=== PATIENT | female | born 1930 | race Caucasian/White ===

== ENCOUNTER 2017-11-19 22:57 | Inpatient (IN) | payer MEDICARE ==
[~2017-11-19] VITALS: Ht 170.2 cm; Wt 55.6 kg
[2017-11-19] MEDS ORDERED: QUET25TA5 PO (23:53)
[2017-11-19] MEDS ORDERED: MULT1TAB52 PO (23:53)
[2017-11-19] MEDS ORDERED: CARB1CAP7 PO (23:53)
[2017-11-19] MEDS ORDERED: MIDO5TAB PO (23:53)
[2017-11-19] MEDS ORDERED: CARB1CAP5 PO (23:53)
[2017-11-20] MEDS ORDERED: MAG HYDROX/AL HYDROX/SIMETH 30 ML ORAL.SUSP PO PRN (01:45)
[2017-11-20] MEDS ORDERED: METHYL SALICYLATE/MENTHOL TOPICAL OINTMENT 29GM TUBE. TP PRN (01:45)
[2017-11-20] MEDS ORDERED: MAGNESIUM HYDROXIDE 2,400 MG/30 ML ORAL.SUSP. PO PRN (01:45)
[2017-11-20] MEDS ORDERED: ATORVASTAT PO (01:55)
[2017-11-20] MEDS ORDERED: paxil PO (01:55)
[2017-11-20] MEDS ORDERED: Vitamin D PO (01:55)
[2017-11-20 02:10] VITALS: BP 183/95
[2017-11-20 02:12] LABS: BILIRUBIN,URINE NEG (NEG); CLARITY,URINE CLEAR; COLOR,URINE YELLOW; GLUCOSE,URINE NEG (NEG); NITRITE,URINE NEG (NEG); UROBILINOGEN,URINE 0.2 mg/dL (0.2 mg/dL)
[2017-11-20 02:13] LABS: BACTERIA,URINE MANY /HPF (0-FEW); RBC,URINE 0 /HPF (0-2); SQUAMOUS EPITHELIAL CELL,UR FEW /LPF
[2017-11-20] MEDS ORDERED: QUEtiapine 25 MG TABLET. PO SCH (02:30)
[2017-11-20 05:57] VITALS: BP 154/88
[2017-11-20 07:46] LABS: BASO % 1 % (0-3); EOS # 0.2 x10^3/uL (0.0-0.7); EOS % 3 % (0-3); HEMATOCRIT 38.2 % (36.0-47.0); HEMOGLOBIN 12.8 g/dL (12.0-15.5); LYMPH # 1.1 x10^3/uL (1.0-4.8); LYMPH % 17 % (24-48); MEAN CORPUSCULAR HEMOGLOBIN 30 pg (25-35); MEAN CORPUSCULAR HGB CONC 34 g/dL (31-37); MEAN CORPUSCULAR VOLUME 89 fL (79-100); MONO # 0.6 x10^3/uL (0.0-1.1); MONO % 9 % (0-9); NEUT # 4.4 x10^3uL (1.8-7.7); NEUT % 71 % (31-73); PLATELET COUNT 230 x10^3/uL (140-400); RED BLOOD COUNT 4.31 x10^6/uL (3.50-5.40); RED CELL DISTRIBUTION WIDTH 15.4 % (11.5-14.5); WHITE BLOOD COUNT 6.2 x10^3/uL (4.0-11.0)
[2017-11-20 07:58] LABS: ALBUMIN 3.5 g/dL (3.4-5.0); ALBUMIN/GLOBULIN RATIO 1.1 (1.0-1.7); CALCIUM 8.7 mg/dL (8.5-10.1); CREATININE 0.9 mg/dL (0.6-1.0); GFR 59.2; MAGNESIUM 1.7 mg/dL (1.8-2.4); POTASSIUM 3.7 mmol/L (3.5-5.1); TOTAL BILIRUBIN 0.6 mg/dL (0.2-1.0); TOTAL PROTEIN 6.8 g/dL (6.4-8.2)
[2017-11-20] MEDS: RYTARY PO SCH ×4 (09:00→20:25)
[2017-11-20] MEDS ORDERED: PARO40TA61 PO (09:05)
[2017-11-20] MEDS ORDERED: ATOR40TA59 PO (09:05)
[2017-11-20] MEDS ORDERED: CHOL10003 PO (09:05)
[2017-11-20] MEDS: MULTIVITAMIN with MINERAL TABLET. PO SCH (10:03)
[2017-11-20] MEDS: CHOLECALCIFEROL (VITAMIN D3) 1,000 UNIT TABLET PO SCH (10:03)
[2017-11-20] MEDS: PARoxetine 20 MG TABLET PO SCH (10:03)
[2017-11-20] MEDS: MIDODRINE 5 MG TABLET PO SCH ×2 (12:00→17:00)
[2017-11-20 12:52] LABS: THYROID STIM HORMONE (TSH) 3.057 uIU/mL (0.358-3.740)
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
[2017-11-20] MEDS: CEPHALEXIN 250 MG CAPSULE PO SCH ×2 (15:00→20:25)
--- NOTE | 2017-11-20 16:25 | EKG ---
[address] [address] Test Date: 2017-11-20 Test Time: 16:24:40 Pat Name: SRAVANTHI MCDANIEL Department: Room: [address] [place] [address] Gender: F Outcomes Specialist: : [id number] Requested By: MARIE KAUR Order Number: [id number] Reading MD: Binu Diehl Measurements Intervals [place] Rate: 67 P: -9 [place]: 142 QRS: -35 QRSD: 92 T: -27 QT: 418 QTc: 445 Interpretive Statements SINUS RHYTHM ABNORMAL LEFT AXIS DEVIATION CONSIDER LEFT VENTRICULAR HYPERTROPHY QRS(T) CONTOUR ABNORMALITY CONSIDER ANTEROSEPTAL MYOCARDIAL DAMAGE T ABNORMALITY IN INFERIOR LEADS Electronically Signed On 11-23-2017 11:08:16 CDT by Binu Diehl
[2017-11-20] MEDS: MAGNESIUM CHLORIDE ER 64 MG TABLET.ER PO SCH (17:00)
[2017-11-20] MEDS: ATORVASTATIN CALCIUM 20 MG TABLET PO SCH (20:23)
--- NOTE | 2017-11-20 20:43 | PDOC ---
Exam Note: Chiki Note: Please also refer to the separate dictated note~for this date of service dictated separately.~Patient seen individually. Discussed the patient with Nursing staff reviewed the chart.~Reviewed interim history and current functioning. Reviewed vital signs,~Labs/ Radiology~and current medications noted below. Continue current treatment with the changes noted in the dictated addendum note Assessment: Vital Signs: Vital Signs Date Time Temp Pulse Resp B/P (MAP) Pulse Ox O2 Delivery O2 Flow Rate FiO2 11/20/17 12:00 78 110/62 11/20/17 05:57 98.6 20 92 Room Air Labs: Laboratory Tests Test 11/20/17 01:37 11/20/17 07:23 Urine Collection Type Unknown Urine Color Yellow Urine Clarity Clear Urine pH 6.5 Urine Specific [place] 1.020 Urine Protein 30 mg/dl (NEG-TRACE) Urine Glucose (UA) Neg mg/dL (NEG) Urine Ketones (Stick) Trace mg/dL (NEG) Urine Blood Neg (NEG) Urine Nitrite Neg (NEG) Urine Bilirubin Neg (NEG) Urine Urobilinogen Dipstick 0.2 mg/dL (0.2 mg/dL) Urine Leukocyte Esterase Trace (NEG) Urine RBC 0 /HPF (0-2) Urine WBC 5-10 /HPF (0-4) Urine Squamous Epithelial Cells Few /LPF Urine Bacteria Many /HPF (0-FEW) White Blood Count 6.2 x10^3/uL (4.0-11.0) Red Blood Count 4.31 x10^6/uL (3.50-5.40) Hemoglobin 12.8 g/dL (12.0-15.5) Hematocrit 38.2 % (36.0-47.0) Mean Corpuscular Volume 89 fL (79-100) Mean Corpuscular Hemoglobin 30 pg (25-35) Mean Corpuscular Hemoglobin Concent 34 g/dL (31-37) Red Cell Distribution Width 15.4 % (11.5-14.5) H Platelet Count 230 x10^3/uL (140-400) Neutrophils (%) (Auto) 71 % (31-73) Lymphocytes (%) (Auto) 17 % (24-48) L Monocytes (%) (Auto) 9 % (0-9) Eosinophils (%) (Auto) 3 % (0-3) Basophils (%) (Auto) 1 % (0-3) Neutrophils # (Auto) 4.4 x10^3uL (1.8-7.7) Lymphocytes # (Auto) 1.1 x10^3/uL (1.0-4.8) Monocytes # (Auto) 0.6 x10^3/uL (0.0-1.1) Eosinophils # (Auto) 0.2 x10^3/uL (0.0-0.7) Basophils # (Auto) 0.0 x10^3/uL (0.0-0.2) Sodium Level 141 mmol/L (136-145) Potassium Level 3.7 mmol/L (3.5-5.1) Chloride Level 105 mmol/L (98-107) Carbon Dioxide Level 27 mmol/L (21-32) Anion Gap 9 (6-14) Blood Urea Nitrogen 27 mg/dL (7-20) H Creatinine 0.9 mg/dL (0.6-1.0) Estimated GFR (Cockcroft-Gault) 59.2 BUN/Creatinine Ratio 30 (6-20) H Glucose Level 87 mg/dL (70-99) Calcium Level 8.7 mg/dL (8.5-10.1) Magnesium Level 1.7 mg/dL (1.8-2.4) L Iron Level 68 ug/dL (50-170) Total Iron Binding Capacity 292 ug/dL (250-450) Iron Saturation 23 % (15-34) Total Bilirubin 0.6 mg/dL (0.2-1.0) Aspartate Amino Transferase (AST) 25 U/L (15-37) Alanine Aminotransferase (ALT) 11 U/L (14-59) L Alkaline Phosphatase 87 U/L (46-116) Total Protein 6.8 g/dL (6.4-8.2) Albumin 3.5 g/dL (3.4-5.0) Albumin/Globulin Ratio 1.1 (1.0-1.7) Triglycerides Level 41 mg/dL (0-150) Cholesterol Level 163 mg/dL (0-200) LDL Cholesterol, Calculated 84 mg/dL (0-100) VLDL Cholesterol, Calculated 8 mg/dL (0-40) Non-HDL Cholesterol Calculated 92 mg/dL (0-129) HDL Cholesterol 71 mg/dL (40-60) H Cholesterol/HDL Ratio 2.0 Vitamin B12 Level 458 pg/mL (247-911) 25-Hydroxy Vitamin D Total 35.5 ng/mL (30-100) Thyroid Stimulating Hormone (TSH) 3.057 uIU/mL (0.358-3.740) Treponema pallidum Antibody Nonreactive (Nonreactive) Current Medications: Meds: Current Medications Acetaminophen (Tylenol) 650 mg PRN Q6HRS PRN PO PAIN / TEMP; Start 11/20/17 at 01:45 Multi-Ingredient Ointment (Analgesic [place]) 1 jay PRN QID PRN TP MUSCLE PAIN; Start 11/20/17 at 01:45 Al Hydroxide/Mg Hydroxide (Mylanta Plus Xs) 15 ml PRN AFTMEALHC PRN PO DYSPEPSIA; Start 11/20/17 at 01:45 Magnesium Hydroxide (Milk Of Magnesia) 2,400 mg PRN QHS PRN PO CONSTIPATION; Start 11/20/17 at 01:45 Olanzapine (ZyPREXA ZYDIS) 1.25 mg PRN Q2HR PRN PO PSYCHOSIS Last administered on 11/20/17at 10:58; Start 11/20/17 at 02:15 Quetiapine Fumarate (SEROquel) 25 mg QHS PO ; Start 11/20/17 at 02:30; Stop at 02:32; Status DC Quetiapine Fumarate (SEROquel) 25 mg QHS PO ; Start 11/21/17 at 21:00 Vitamin D (Vitamin D3) 2,000 unit DAILY PO Last administered on 11/20/17at 10:03 ; Start 11/20/17 at 09:00 Atorvastatin Calcium (Lipitor) 40 mg QHS PO Last administered on 11/20/17at 20: 23; Start 11/20/17 at 21:00 Non-Formulary Medication (Carbidopa/ Levodopa (Rytary ER 48.75 mg-195 mg Cap)) 1 cap DAILYWLUN PO Last administered on 11/20/17at 12:00; Start 11/20/17 at 12: 00 Non-Formulary Medication (Carbidopa/ Levodopa (Rytary ER 61.25 mg-245 mg Cap)) 1 cap TID@0900,1700,2100 PO Last administered on 11/20/17at 20:25; Start at 09:00 Midodrine (Proamatine) 5 mg TIDWMEALS PO Last administered on 11/20/17at 12:00; Start 11/20/17 at 12:00 Multivitamins/ Calcium (Thera-M Plus) 1 tab DAILY PO Last administered on at 10:03; Start 11/20/17 at 09:00 Paroxetine HCl (Paxil) 40 mg DAILY PO Last administered on 11/20/17at 10:03; Start 11/20/17 at 09:00 Magnesium Chloride (Mag Delay) 64 mg DAILY PO ; Start 11/20/17 at 17:00 Cephalexin HCl (Keflex) 500 mg BID PO Last administered on 11/20/17at 20:25; Start 11/20/17 at 15:00; Stop 11/30/17 at 14:59 Active Scripts Active Reported Atorvastatin Calcium 40 Mg Tablet 40 Mg PO QHS Paxil (Paroxetine Hcl) 40 Mg Tablet 40 Mg PO DAILY Vitamin D3 (Cholecalciferol (Vitamin D3)) 1,000 Unit Tablet 2,000 Unit PO DAILY Rytary ER 48.75 mg-195 mg Cap (Carbidopa/Levodopa) 1 Each Capsule.er 1 Cap PO DAILYWLUN Seroquel (Quetiapine Fumarate) 25 Mg Tablet 25 Mg PO HS Multivitamins (Multivitamin) 1 Each Tablet 1 Tab PO DAILY Midodrine Hcl 5 Mg Tablet 5 Mg PO TIDWMEALS Rytary ER 61.25 mg-245 mg Cap (Carbidopa/Levodopa) 1 Each Capsule.er 1 Cap PO TID AT11/23/2099 I have reviewed the current psychotropics carefully including drug interactions. Risk benefit ratio favors no change other than as noted in my dictated progress note. 

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
[2017-11-21 01:07] LABS: HEMOGLOBIN A1C 5.7 % (4.8-5.6)
[2017-11-21 03:08] LABS: THYROXINE 6.2 ug/dL (4.5-12.0)
[2017-11-21 05:58] VITALS: BP 140/67
[2017-11-21] MEDS: PARoxetine 20 MG TABLET PO SCH (07:47)
[2017-11-21] MEDS: MULTIVITAMIN with MINERAL TABLET. PO SCH (07:48)
[2017-11-21] MEDS: MIDODRINE 5 MG TABLET PO SCH ×3 (07:48→17:55)
[2017-11-21] MEDS: MAGNESIUM CHLORIDE ER 64 MG TABLET.ER PO SCH (07:48)
[2017-11-21] MEDS: CEPHALEXIN 250 MG CAPSULE PO SCH (07:48)
[2017-11-21] MEDS: CHOLECALCIFEROL (VITAMIN D3) 1,000 UNIT TABLET PO SCH (07:48)
[2017-11-21] MEDS: RYTARY PO SCH ×4 (07:49→20:47)
[2017-11-21] MEDS: LACTOBACILLUS RHAMNOSUS GG 1 CAPSULE. PO SCH ×2 (07:50→20:47)
[2017-11-21 15:39] VITALS: BP 141/85
[2017-11-21] MEDS: CEFPODOXIME PROXETIL 100 MG TABLET PO SCH (20:47)
[2017-11-21] MEDS: ATORVASTATIN CALCIUM 20 MG TABLET PO SCH (20:47)
[2017-11-21] MEDS ORDERED: QUEtiapine 25 MG TABLET. PO SCH (21:00)
--- NOTE | 2017-11-21 22:44 | PDOC ---
Exam Note: Chiki Note: Please also refer to the separate dictated note~for this date of service dictated separately.~Patient seen individually. Discussed the patient with Nursing staff reviewed the chart.~Reviewed interim history and current functioning. Reviewed vital signs,~Labs/ Radiology~and current medications noted below. Continue current treatment with the changes noted in the dictated addendum note Assessment: Vital Signs: Vital Signs Date Time Temp Pulse Resp B/P (MAP) Pulse Ox O2 Delivery O2 Flow Rate FiO2 11/21/17 17:55 73 141/85 11/21/17 15:39 97.8 16 96 11/20/17 05:57 Room Air I&O Intake and Output 11/21/17 07:00 Intake Total 760 ml Balance 760 ml Intake Oral 760 ml # Bowel Movements 2 Current Medications: Meds: Current Medications Acetaminophen (Tylenol) 650 mg PRN Q6HRS PRN PO PAIN / TEMP; Start 11/20/17 at 01:45 Multi-Ingredient Ointment (Analgesic [place]) 1 jay PRN QID PRN TP MUSCLE PAIN; Start 11/20/17 at 01:45 Al Hydroxide/Mg Hydroxide (Mylanta Plus Xs) 15 ml PRN AFTMEALHC PRN PO DYSPEPSIA; Start 11/20/17 at 01:45 Magnesium Hydroxide (Milk Of Magnesia) 2,400 mg PRN QHS PRN PO CONSTIPATION; Start 11/20/17 at 01:45 Olanzapine (ZyPREXA ZYDIS) 1.25 mg PRN Q2HR PRN PO PSYCHOSIS Last administered on 11/20/17at 10:58; Start 11/20/17 at 02:15 Quetiapine Fumarate (SEROquel) 25 mg QHS PO ; Start 11/20/17 at 02:30; Stop at 02:32; Status DC Quetiapine Fumarate (SEROquel) 25 mg QHS PO Last administered on 11/21/17at 20: 47; Start 11/21/17 at 21:00 Vitamin D (Vitamin D3) 2,000 unit DAILY PO Last administered on 11/21/17at 07:48 ; Start 11/20/17 at 09:00 Atorvastatin Calcium (Lipitor) 40 mg QHS PO Last administered on 11/21/17at 20: 47; Start 11/20/17 at 21:00 Non-Formulary Medication (Carbidopa/ Levodopa (Rytary ER 48.75 mg-195 mg Cap)) 1 cap DAILYWLUN PO Last administered on 11/21/17at 14:13; Start 11/20/17 at 12: 00 Non-Formulary Medication (Carbidopa/ Levodopa (Rytary ER 61.25 mg-245 mg Cap)) 1 cap TID@0900,1700,2100 PO Last administered on 11/21/17at 20:47; Start at 09:00 Midodrine (Proamatine) 5 mg TIDWMEALS PO Last administered on 11/21/17 17:55; Start 11/20/17 at 12:00 Multivitamins/ Calcium (Thera-M Plus) 1 tab DAILY PO Last administered on 07:48; Start 11/20/17 at 09:00 Paroxetine HCl (Paxil) 40 mg DAILY PO Last administered on 11/21/17at 07:47; Start 11/20/17 at 09:00 Magnesium Chloride (Mag Delay) 64 mg DAILY PO Last administered on 11/21/17at 07 :48; Start 11/20/17 at 17:00 Cephalexin HCl (Keflex) 500 mg BID PO Last administered on 11/21/17at 07:48; Start 11/20/17 at 15:00; Stop 11/21/17 at 16:50; Status DC Lactobacillus Rhamnosus (Culturelle) 1 cap BID PO Last administered on at 20:47; Start 11/21/17 at 09:00 Cefpodoxime Proxetil (Vantin) 100 mg BID PO Last administered on 11/21/17at 20: 47; Start 11/21/17 at 21:00; Stop 12/01/17 at 20:59 Active Scripts Active Reported Atorvastatin Calcium 40 Mg Tablet 40 Mg PO QHS Paxil (Paroxetine Hcl) 40 Mg Tablet 40 Mg PO DAILY Vitamin D3 (Cholecalciferol (Vitamin D3)) 1,000 Unit Tablet 2,000 Unit PO DAILY Rytary ER 48.75 mg-195 mg Cap (Carbidopa/Levodopa) 1 Each Capsule.er 1 Cap PO DAILYWLUN Seroquel (Quetiapine Fumarate) 25 Mg Tablet 25 Mg PO HS Multivitamins (Multivitamin) 1 Each Tablet 1 Tab PO DAILY Midodrine Hcl 5 Mg Tablet 5 Mg PO TIDWMEALS Rytary ER 61.25 mg-245 mg Cap (Carbidopa/Levodopa) 1 Each Capsule.er 1 Cap PO TID AT11/23/2099 I have reviewed the current psychotropics carefully including drug interactions. Risk benefit ratio favors no change other than as noted in my dictated progress note. 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
[2017-11-22 05:42] VITALS: BP 163/82
[2017-11-22] MEDS: CEFPODOXIME PROXETIL 100 MG TABLET PO SCH ×2 (07:15→19:57)
[2017-11-22] MEDS: MULTIVITAMIN with MINERAL TABLET. PO SCH (07:15)
[2017-11-22] MEDS: LACTOBACILLUS RHAMNOSUS GG 1 CAPSULE. PO SCH ×2 (07:15→19:55)
[2017-11-22] MEDS: MAGNESIUM CHLORIDE ER 64 MG TABLET.ER PO SCH (07:15)
[2017-11-22] MEDS: PARoxetine 20 MG TABLET PO SCH (07:15)
[2017-11-22] MEDS: CHOLECALCIFEROL (VITAMIN D3) 1,000 UNIT TABLET PO SCH (07:15)
[2017-11-22] MEDS: MIDODRINE 5 MG TABLET PO SCH ×3 (07:15→18:13)
[2017-11-22] MEDS: RYTARY PO SCH ×5 (07:16→19:59)
[2017-11-22] MEDS: ACETAMINOPHEN 325 MG TABLET PO PRN (08:13)
[2017-11-22 16:32] VITALS: BP 121/67
[2017-11-22] MEDS: ATORVASTATIN CALCIUM 20 MG TABLET PO SCH (19:55)
[2017-11-22] MEDS: QUEtiapine 25 MG TABLET. PO SCH (19:57)
--- NOTE | 2017-11-22 20:54 | PDOC ---
Exam Note: Chiki Note: Please also refer to the separate dictated note~for this date of service dictated separately.~Patient seen individually. Discussed the patient with Nursing staff reviewed the chart.~Reviewed interim history and current functioning. Reviewed vital signs,~Labs/ Radiology~and current medications noted below. Continue current treatment with the changes noted in the dictated addendum note Assessment: Vital Signs: Vital Signs Date Time Temp Pulse Resp B/P (MAP) Pulse Ox O2 Delivery O2 Flow Rate FiO2 11/22/17 18:13 74 121/67 11/22/17 16:32 99.6 18 92 11/20/17 05:57 Room Air I&O Intake and Output 11/22/17 07:00 Intake Total 960 ml Balance 960 ml Intake Oral 960 ml Current Medications: Meds: Current Medications Acetaminophen (Tylenol) 650 mg PRN Q6HRS PRN PO PAIN / TEMP Last administered on 11/22/17at 08:13; Start 11/20/17 at 01:45 Multi-Ingredient Ointment (Analgesic [place]) 1 jay PRN QID PRN TP MUSCLE PAIN; Start 11/20/17 at 01:45 Al Hydroxide/Mg Hydroxide (Mylanta Plus Xs) 15 ml PRN AFTMEALHC PRN PO DYSPEPSIA; Start 11/20/17 at 01:45 Magnesium Hydroxide (Milk Of Magnesia) 2,400 mg PRN QHS PRN PO CONSTIPATION; Start 11/20/17 at 01:45 Olanzapine (ZyPREXA ZYDIS) 1.25 mg PRN Q2HR PRN PO PSYCHOSIS Last administered on 11/20/17at 10:58; Start 11/20/17 at 02:15 Quetiapine Fumarate (SEROquel) 25 mg QHS PO ; Start 11/20/17 at 02:30; Stop at 02:32; Status DC Quetiapine Fumarate (SEROquel) 25 mg QHS PO Last administered on 11/21/17at 20: 47; Start 11/21/17 at 21:00; Stop 11/22/17 at 18:47; Status DC Vitamin D (Vitamin D3) 2,000 unit DAILY PO Last administered on 11/22/17at 07:15 ; Start 11/20/17 at 09:00 Atorvastatin Calcium (Lipitor) 40 mg QHS PO Last administered on 11/22/17 19: 55; Start 11/20/17 at 21:00 Non-Formulary Medication (Carbidopa/ Levodopa (Rytary ER 48.75 mg-195 mg Cap)) 1 cap DAILYWLUN PO Last administered on 11/22/17at 13:17; Start 11/20/17 at 12: 00 Non-Formulary Medication (Carbidopa/ Levodopa (Rytary ER 61.25 mg-245 mg Cap)) 1 cap TID@0900,1700,2100 PO Last administered on 11/22/17 19:59; Start at 09:00 Midodrine (Proamatine) 5 mg TIDWMEALS PO Last administered on 11/22/17 18:13; Start 11/20/17 at 12:00 Multivitamins/ Calcium (Thera-M Plus) 1 tab DAILY PO Last administered on 07:15; Start 11/20/17 at 09:00 Paroxetine HCl (Paxil) 40 mg DAILY PO Last administered on 11/22/17 07:15; Start 11/20/17 at 09:00 Magnesium Chloride (Mag Delay) 64 mg DAILY PO Last administered on 11/22/17 07 :15; Start 11/20/17 at 17:00 Cephalexin HCl (Keflex) 500 mg BID PO Last administered on 11/21/17at 07:48; Start 11/20/17 at 15:00; Stop 11/21/17 at 16:50; Status DC Lactobacillus Rhamnosus (Culturelle) 1 cap BID PO Last administered on 19:55; Start 11/21/17 at 09:00 Cefpodoxime Proxetil (Vantin) 100 mg BID PO Last administered on 11/22/17 19: 57; Start 11/21/17 at 21:00; Stop 12/01/17 at 20:59 Quetiapine Fumarate (SEROquel) 37.5 mg QHS PO Last administered on 11/22/17 19 :57; Start 11/22/17 at 21:00 Active Scripts Active Reported Atorvastatin Calcium 40 Mg Tablet 40 Mg PO QHS Paxil (Paroxetine Hcl) 40 Mg Tablet 40 Mg PO DAILY Vitamin D3 (Cholecalciferol (Vitamin D3)) 1,000 Unit Tablet 2,000 Unit PO DAILY Rytary ER 48.75 mg-195 mg Cap (Carbidopa/Levodopa) 1 Each Capsule.er 1 Cap PO DAILYWLUN Seroquel (Quetiapine Fumarate) 25 Mg Tablet 25 Mg PO HS Multivitamins (Multivitamin) 1 Each Tablet 1 Tab PO DAILY Midodrine Hcl 5 Mg Tablet 5 Mg PO TIDWMEALS Rytary ER 61.25 mg-245 mg Cap (Carbidopa/Levodopa) 1 Each Capsule.er 1 Cap PO TID AT11/23/2099 I have reviewed the current psychotropics carefully including drug interactions. Risk benefit ratio favors no change other than as noted in my dictated progress note. 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
[2017-11-23 06:27] VITALS: BP 139/54
[2017-11-23] MEDS: MIDODRINE 5 MG TABLET PO SCH ×3 (08:29→17:28)
[2017-11-23] MEDS: RYTARY PO SCH ×4 (08:30→19:36)
[2017-11-23] MEDS: MAGNESIUM CHLORIDE ER 64 MG TABLET.ER PO SCH ×2 (08:31→08:49)
[2017-11-23] MEDS: LACTOBACILLUS RHAMNOSUS GG 1 CAPSULE. PO SCH ×2 (08:31→19:34)
[2017-11-23] MEDS: CEFPODOXIME PROXETIL 100 MG TABLET PO SCH ×3 (08:32→19:34)
[2017-11-23] MEDS: MULTIVITAMIN with MINERAL TABLET. PO SCH ×2 (08:32→08:49)
[2017-11-23] MEDS: PARoxetine 20 MG TABLET PO SCH (08:32)
[2017-11-23] MEDS: CHOLECALCIFEROL (VITAMIN D3) 1,000 UNIT TABLET PO SCH ×2 (08:33→08:50)
[2017-11-23] MEDS: ACETAMINOPHEN 325 MG TABLET PO PRN (15:45)
[2017-11-23 15:48] VITALS: BP 168/83
[2017-11-23] MEDS: ATORVASTATIN CALCIUM 20 MG TABLET PO SCH (19:34)
[2017-11-23] MEDS: QUEtiapine 25 MG TABLET. PO SCH (19:35)
--- NOTE | 2017-11-23 20:48 | PDOC ---
Exam Note: Chiki Note: Please also refer to the separate dictated note~for this date of service dictated separately.~Patient seen individually. Discussed the patient with Nursing staff reviewed the chart.~Reviewed interim history and current functioning. Reviewed vital signs,~Labs/ Radiology~and current medications noted below. Continue current treatment with the changes noted in the dictated addendum note Assessment: Vital Signs: Vital Signs Date Time Temp Pulse Resp B/P (MAP) Pulse Ox O2 Delivery O2 Flow Rate FiO2 11/23/17 17:28 71 168/83 11/23/17 15:48 97.9 20 92 11/23/17 06:27 Room Air I&O Intake and Output 11/23/17 07:00 Intake Total 725 ml Balance 725 ml Intake Oral 725 ml Labs: Laboratory Tests Test 11/23/17 06:04 Magnesium Level 1.7 mg/dL (1.8-2.4) L Current Medications: Meds: Current Medications Acetaminophen (Tylenol) 650 mg PRN Q6HRS PRN PO PAIN / TEMP Last administered on 11/23/17at 15:45; Start 11/20/17 at 01:45 Multi-Ingredient Ointment (Analgesic [place]) 1 jay PRN QID PRN TP MUSCLE PAIN; Start 11/20/17 at 01:45 Al Hydroxide/Mg Hydroxide (Mylanta Plus Xs) 15 ml PRN AFTMEALHC PRN PO DYSPEPSIA; Start 11/20/17 at 01:45 Magnesium Hydroxide (Milk Of Magnesia) 2,400 mg PRN QHS PRN PO CONSTIPATION; Start 11/20/17 at 01:45 Olanzapine (ZyPREXA ZYDIS) 1.25 mg PRN Q2HR PRN PO PSYCHOSIS Last administered on 11/20/17at 10:58; Start 11/20/17 at 02:15 Quetiapine Fumarate (SEROquel) 25 mg QHS PO ; Start 11/20/17 at 02:30; Stop at 02:32; Status DC Quetiapine Fumarate (SEROquel) 25 mg QHS PO Last administered on 11/21/17at 20: 47; Start 11/21/17 at 21:00; Stop 11/22/17 at 18:47; Status DC Vitamin D (Vitamin D3) 2,000 unit DAILY PO Last administered on 11/22/17 07:15 ; Start 11/20/17 at 09:00 Atorvastatin Calcium (Lipitor) 40 mg QHS PO Last administered on 11/23/17 19: 34; Start 11/20/17 at 21:00 Non-Formulary Medication (Carbidopa/ Levodopa (Rytary ER 48.75 mg-195 mg Cap)) 1 cap DAILYWLUN PO Last administered on 11/23/17at 11:39; Start 11/20/17 at 12: 00 Non-Formulary Medication (Carbidopa/ Levodopa (Rytary ER 61.25 mg-245 mg Cap)) 1 cap TID@0900,1700,2100 PO Last administered on 11/23/17at 19:36; Start at 09:00 Midodrine (Proamatine) 5 mg TIDWMEALS PO Last administered on 11/23/17at 17:28; Start 11/20/17 at 12:00 Multivitamins/ Calcium (Thera-M Plus) 1 tab DAILY PO Last administered on at 07:15; Start 11/20/17 at 09:00 Paroxetine HCl (Paxil) 40 mg DAILY PO Last administered on 11/23/17at 08:32; Start 11/20/17 at 09:00 Magnesium Chloride (Mag Delay) 64 mg DAILY PO Last administered on 11/22/17at 07 :15; Start 11/20/17 at 17:00 Cephalexin HCl (Keflex) 500 mg BID PO Last administered on 11/21/17at 07:48; Start 11/20/17 at 15:00; Stop 11/21/17 at 16:50; Status DC Lactobacillus Rhamnosus (Culturelle) 1 cap BID PO Last administered on 19:34; Start 11/21/17 at 09:00 Cefpodoxime Proxetil (Vantin) 100 mg BID PO Last administered on 11/23/17 19: 34; Start 11/21/17 at 21:00; Stop 12/01/17 at 20:59 Quetiapine Fumarate (SEROquel) 37.5 mg QHS PO Last administered on 11/23/17at 19 :35; Start 11/22/17 at 21:00 Active Scripts Active Reported Atorvastatin Calcium 40 Mg Tablet 40 Mg PO QHS Paxil (Paroxetine Hcl) 40 Mg Tablet 40 Mg PO DAILY Vitamin D3 (Cholecalciferol (Vitamin D3)) 1,000 Unit Tablet 2,000 Unit PO DAILY Rytary ER 48.75 mg-195 mg Cap (Carbidopa/Levodopa) 1 Each Capsule.er 1 Cap PO DAILYWLUN Seroquel (Quetiapine Fumarate) 25 Mg Tablet 25 Mg PO HS Multivitamins (Multivitamin) 1 Each Tablet 1 Tab PO DAILY Midodrine Hcl 5 Mg Tablet 5 Mg PO TIDWMEALS Rytary ER 61.25 mg-245 mg Cap (Carbidopa/Levodopa) 1 Each Capsule.er 1 Cap PO TID AT11/23/2099 I have reviewed the current psychotropics carefully including drug interactions. Risk benefit ratio favors no change other than as noted in my dictated progress note. 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
--- NOTE | 2017-11-24 00:20 | PN ---
DATE: 11/21/2017 This is a late entry for 11/21/2017 covers elements not covered in my initial note. SUBJECTIVE: I met with the patient at length in her room in the evening. The patient has been paranoid, suspicious, wants "out of here" per nursing report. Per nursing report, she has been condescending, compliant with medications, somewhat confused at times with short-term memory deficits, slept 7 hours, but states she did not sleep well. Appetite is poor. Daughter brought in [employer] for supper and she ate very well. REVIEW OF SYSTEMS: Ambulation impaired, in wheelchair. No CV, , pulmonary, eye system symptoms on review. She has problems with movements consequent to Parkinson's. MENTAL STATUS EXAM: Oriented to herself, situation. She dropped her eyeglasses and the magazine on the floor, I picked it up for her and she was very appreciative. Speech coherent, abstraction fair, computation impaired, language function intact, attention span short. Mood and affect remain somewhat anxious. LABORATORY DATA: Reviewed. IMPRESSION: Major depressive disorder, recurrent, rule out psychotic features; anxiety disorder, unspecified; cognitive disorder, unspecified versus mild cognitive impairment, rule out Lewy body dementia. PLAN: No change from initial note. Maintain Seroquel, Paxil and Zyprexa as p.r.n. May consider increasing Seroquel if psychotic symptoms and mood lability persists. MAN Alex KAUR MD DR: MADISYN/danya JOB#: [id number] / [id number]
--- NOTE | 2017-11-24 01:15 | PN ---
DATE: 11/22/2017 PSYCHIATRIC PROGRESS NOTE This is a late entry 11/22/2017, covers elements not covered in my initial note. SUBJECTIVE: I met with the patient in the evening. Overall, the patient has been somewhat paranoid, suspicious, slept 7-1/4 hours. Irritable at times, labile and arguing with staff. REVIEW OF SYSTEMS: Ambulation impaired, in Broda chair. No CV, , pulmonary, eye system symptoms on review. MENTAL STATUS EXAM: Oriented to herself and situation. Speech has some latency, low in volume, often responses monosyllabic consistent with Parkinson's. Abstraction fair, computation impaired, language function intact, attention span short. Mood and affect somewhat withdrawn. LABORATORY DATA: Reviewed. IMPRESSION: Unchanged from initial note. PLAN: Increase Seroquel from 25 at bedtime to 37.5 mg at bedtime. Maintain Paxil 40 mg a day, Zyprexa p.r.n. MARIE KAUR MD DR: MADISYN/danya JOB#: [id number] / [id number]
[2017-11-24 05:55] VITALS: BP 128/70
[2017-11-24] MEDS: MAGNESIUM CHLORIDE ER 64 MG TABLET.ER PO SCH (08:08)
[2017-11-24] MEDS: MULTIVITAMIN with MINERAL TABLET. PO SCH (08:09)
[2017-11-24] MEDS: LACTOBACILLUS RHAMNOSUS GG 1 CAPSULE. PO SCH ×2 (08:09→20:15)
[2017-11-24] MEDS: CHOLECALCIFEROL (VITAMIN D3) 1,000 UNIT TABLET PO SCH (08:09)
[2017-11-24] MEDS: CEFPODOXIME PROXETIL 100 MG TABLET PO SCH ×2 (08:09→20:15)
[2017-11-24] MEDS: PARoxetine 20 MG TABLET PO SCH (08:09)
[2017-11-24] MEDS: MIDODRINE 5 MG TABLET PO SCH ×3 (08:12→17:13)
[2017-11-24] MEDS: ACETAMINOPHEN 325 MG TABLET PO PRN (09:44)
[2017-11-24] MEDS: RYTARY PO SCH ×4 (09:46→20:19)
[2017-11-24 15:45] VITALS: BP 122/73
--- NOTE | 2017-11-24 19:53 | PN ---
DATE: 11/23/2017 PSYCHIATRIC PROGRESS NOTE This late entry 11/23/2017 covers elements not covered in my initial note. SUBJECTIVE: Met with the patient in the evening. Overall, the patient has been quite irritable, especially at breakfast, refused some of her medications, took them later and was pleasant. Slept 6-1/2 hours. I met with her at length in her room. She complains of pain, impaired ambulation, confused, trying to get up without assistance. I also returned a call from the patient's daughter, Kristen. Daughter had many questions, the patient's diagnosis, medications, discharge plans. We addressed all of this and invited Kristen to join us at the treatment team meeting on . Kristen's number is #[phone]. REVIEW OF SYSTEMS: Ambulation impaired, in wheelchair. No CV, , pulmonary, eye system symptoms on review. MENTAL STATUS EXAM: Oriented reasonably. Speech is coherent, has some latency. Abstraction fair, computation impaired, language function intact. Short term memory is impaired. No suicidal or homicidal ideation. LABORATORY DATA: Reviewed. IMPRESSION: Unchanged from initial note. Treat the urinary tract infection. PLAN: Seroquel has been increased. Rest continue unchanged including Paxil 40 mg a day, Seroquel 37.5 mg at bedtime. MAN Alex KAUR MD DR: MADISYN/danya JOB#: [id number] / [id number]
[2017-11-24] MEDS: QUEtiapine 25 MG TABLET. PO SCH (20:14)
[2017-11-24] MEDS: ATORVASTATIN CALCIUM 20 MG TABLET PO SCH (20:15)
--- NOTE | 2017-11-24 20:48 | PDOC ---
Exam Note: Chiki Note: Please also refer to the separate dictated note~for this date of service dictated separately.~Patient seen individually. Discussed the patient with Nursing staff reviewed the chart.~Reviewed interim history and current functioning. Reviewed vital signs,~Labs/ Radiology~and current medications noted below. Continue current treatment with the changes noted in the dictated addendum note Assessment: Vital Signs: Vital Signs Date Time Temp Pulse Resp B/P (MAP) Pulse Ox O2 Delivery O2 Flow Rate FiO2 11/24/17 17:13 79 122/73 11/24/17 15:45 97.4 18 94 11/23/17 06:27 Room Air I&O Intake and Output 11/24/17 07:00 Intake Total 840 ml Balance 840 ml Intake Oral 840 ml # Voids 1 # Bowel Movements 2 Current Medications: Meds: Current Medications Acetaminophen (Tylenol) 650 mg PRN Q6HRS PRN PO PAIN / TEMP Last administered on 11/24/17at 09:44; Start 11/20/17 at 01:45 Multi-Ingredient Ointment (Analgesic [place]) 1 jay PRN QID PRN TP MUSCLE PAIN; Start 11/20/17 at 01:45 Al Hydroxide/Mg Hydroxide (Mylanta Plus Xs) 15 ml PRN AFTMEALHC PRN PO DYSPEPSIA; Start 11/20/17 at 01:45 Magnesium Hydroxide (Milk Of Magnesia) 2,400 mg PRN QHS PRN PO CONSTIPATION; Start 11/20/17 at 01:45 Olanzapine (ZyPREXA ZYDIS) 1.25 mg PRN Q2HR PRN PO PSYCHOSIS Last administered on 11/20/17at 10:58; Start 11/20/17 at 02:15 Quetiapine Fumarate (SEROquel) 25 mg QHS PO ; Start 11/20/17 at 02:30; Stop at 02:32; Status DC Quetiapine Fumarate (SEROquel) 25 mg QHS PO Last administered on 11/21/17at 20: 47; Start 11/21/17 at 21:00; Stop 11/22/17 at 18:47; Status DC Vitamin D (Vitamin D3) 2,000 unit DAILY PO Last administered on 11/24/17at 08:09 ; Start 11/20/17 at 09:00 Atorvastatin Calcium (Lipitor) 40 mg QHS PO Last administered on 11/24/17 20: 15; Start 11/20/17 at 21:00 Non-Formulary Medication (Carbidopa/ Levodopa (Rytary ER 48.75 mg-195 mg Cap)) 1 cap DAILYWLUN PO Last administered on 11/24/17at 12:24; Start 11/20/17 at 12: 00 Non-Formulary Medication (Carbidopa/ Levodopa (Rytary ER 61.25 mg-245 mg Cap)) 1 cap TID@0900,1700,2100 PO Last administered on 11/24/17at 20:19; Start at 09:00 Midodrine (Proamatine) 5 mg TIDWMEALS PO Last administered on 11/24/17 17:13; Start 11/20/17 at 12:00 Multivitamins/ Calcium (Thera-M Plus) 1 tab DAILY PO Last administered on at 08:09; Start 11/20/17 at 09:00 Paroxetine HCl (Paxil) 40 mg DAILY PO Last administered on 11/24/17at 08:09; Start 11/20/17 at 09:00 Magnesium Chloride (Mag Delay) 64 mg DAILY PO Last administered on 11/24/17 08 :08; Start 11/20/17 at 17:00 Cephalexin HCl (Keflex) 500 mg BID PO Last administered on 11/21/17at 07:48; Start 11/20/17 at 15:00; Stop 11/21/17 at 16:50; Status DC Lactobacillus Rhamnosus (Culturelle) 1 cap BID PO Last administered on at 20:15; Start 11/21/17 at 09:00 Cefpodoxime Proxetil (Vantin) 100 mg BID PO Last administered on 11/24/17 20: 15; Start 11/21/17 at 21:00; Stop 12/01/17 at 20:59 Quetiapine Fumarate (SEROquel) 37.5 mg QHS PO Last administered on 11/24/17at 20 :14; Start 11/22/17 at 21:00 Active Scripts Active Reported Atorvastatin Calcium 40 Mg Tablet 40 Mg PO QHS Paxil (Paroxetine Hcl) 40 Mg Tablet 40 Mg PO DAILY Vitamin D3 (Cholecalciferol (Vitamin D3)) 1,000 Unit Tablet 2,000 Unit PO DAILY Rytary ER 48.75 mg-195 mg Cap (Carbidopa/Levodopa) 1 Each Capsule.er 1 Cap PO DAILYWLUN Seroquel (Quetiapine Fumarate) 25 Mg Tablet 25 Mg PO HS Multivitamins (Multivitamin) 1 Each Tablet 1 Tab PO DAILY Midodrine Hcl 5 Mg Tablet 5 Mg PO TIDWMEALS Rytary ER 61.25 mg-245 mg Cap (Carbidopa/Levodopa) 1 Each Capsule.er 1 Cap PO TID AT11/23/2099 I have reviewed the current psychotropics carefully including drug interactions. Risk benefit ratio favors no change other than as noted in my dictated progress note. 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
[2017-11-25 05:52] VITALS: BP 135/72
[2017-11-25] MEDS: LACTOBACILLUS RHAMNOSUS GG 1 CAPSULE. PO SCH ×2 (08:19→20:43)
[2017-11-25] MEDS: MAGNESIUM CHLORIDE ER 64 MG TABLET.ER PO SCH (08:19)
[2017-11-25] MEDS: MIDODRINE 5 MG TABLET PO SCH ×3 (08:19→17:28)
[2017-11-25] MEDS: CEFPODOXIME PROXETIL 100 MG TABLET PO SCH ×2 (08:20→20:46)
[2017-11-25] MEDS: PARoxetine 20 MG TABLET PO SCH (08:20)
[2017-11-25] MEDS: MULTIVITAMIN with MINERAL TABLET. PO SCH (08:20)
[2017-11-25] MEDS: CHOLECALCIFEROL (VITAMIN D3) 1,000 UNIT TABLET PO SCH (08:20)
[2017-11-25] MEDS: RYTARY PO SCH ×4 (08:22→20:45)
[2017-11-25 16:46] VITALS: BP 139/85
[2017-11-25] MEDS: ATORVASTATIN CALCIUM 20 MG TABLET PO SCH (20:43)
[2017-11-25] MEDS: QUEtiapine 25 MG TABLET. PO SCH (20:44)
--- NOTE | 2017-11-25 21:07 | PDOC ---
Exam Note: Chiki Note: Please also refer to the separate dictated note~for this date of service dictated separately.~Patient seen individually. Discussed the patient with Nursing staff reviewed the chart.~Reviewed interim history and current functioning. Reviewed vital signs,~Labs/ Radiology~and current medications noted below. Continue current treatment with the changes noted in the dictated addendum note Assessment: Vital Signs: Vital Signs Date Time Temp Pulse Resp B/P (MAP) Pulse Ox O2 Delivery O2 Flow Rate FiO2 11/25/17 17:28 82 139/85 11/25/17 16:46 98.7 16 96 Room Air I&O Intake and Output 11/25/17 07:00 Intake Total 1200 ml Balance 1200 ml Intake Oral 1200 ml # Voids 1 # Bowel Movements 2 Current Medications: Meds: Current Medications Acetaminophen (Tylenol) 650 mg PRN Q6HRS PRN PO PAIN / TEMP Last administered on 11/24/17at 09:44; Start 11/20/17 at 01:45 Multi-Ingredient Ointment (Analgesic [place]) 1 jay PRN QID PRN TP MUSCLE PAIN; Start 11/20/17 at 01:45 Al Hydroxide/Mg Hydroxide (Mylanta Plus Xs) 15 ml PRN AFTMEALHC PRN PO DYSPEPSIA; Start 11/20/17 at 01:45 Magnesium Hydroxide (Milk Of Magnesia) 2,400 mg PRN QHS PRN PO CONSTIPATION; Start 11/20/17 at 01:45 Olanzapine (ZyPREXA ZYDIS) 1.25 mg PRN Q2HR PRN PO PSYCHOSIS Last administered on 11/20/17at 10:58; Start 11/20/17 at 02:15 Quetiapine Fumarate (SEROquel) 25 mg QHS PO ; Start 11/20/17 at 02:30; Stop at 02:32; Status DC Quetiapine Fumarate (SEROquel) 25 mg QHS PO Last administered on 11/21/17at 20: 47; Start 11/21/17 at 21:00; Stop 11/22/17 at 18:47; Status DC Vitamin D (Vitamin D3) 2,000 unit DAILY PO Last administered on 11/25/17at 08:20 ; Start 11/20/17 at 09:00 Atorvastatin Calcium (Lipitor) 40 mg QHS PO Last administered on 11/25/17at 20: 43; Start 11/20/17 at 21:00 Non-Formulary Medication (Carbidopa/ Levodopa (Rytary ER 48.75 mg-195 mg Cap)) 1 cap DAILYWLUN PO Last administered on 11/25/17at 13:19; Start 11/20/17 at 12: 00 Non-Formulary Medication (Carbidopa/ Levodopa (Rytary ER 61.25 mg-245 mg Cap)) 1 cap TID@0900,1700,2100 PO Last administered on 11/25/17at 20:45; Start at 09:00 Midodrine (Proamatine) 5 mg TIDWMEALS PO Last administered on 11/25/17 17:28; Start 11/20/17 at 12:00 Multivitamins/ Calcium (Thera-M Plus) 1 tab DAILY PO Last administered on 08:20; Start 11/20/17 at 09:00 Paroxetine HCl (Paxil) 40 mg DAILY PO Last administered on 11/25/17 08:20; Start 11/20/17 at 09:00 Magnesium Chloride (Mag Delay) 64 mg DAILY PO Last administered on 11/25/17 08 :19; Start 11/20/17 at 17:00 Cephalexin HCl (Keflex) 500 mg BID PO Last administered on 11/21/17at 07:48; Start 11/20/17 at 15:00; Stop 11/21/17 at 16:50; Status DC Lactobacillus Rhamnosus (Culturelle) 1 cap BID PO Last administered on 20:43; Start 11/21/17 at 09:00 Cefpodoxime Proxetil (Vantin) 100 mg BID PO Last administered on 11/25/17at 20: 46; Start 11/21/17 at 21:00; Stop 12/01/17 at 20:59 Quetiapine Fumarate (SEROquel) 37.5 mg QHS PO Last administered on 11/25/17at 20 :44; Start 11/22/17 at 21:00 Active Scripts Active Reported Atorvastatin Calcium 40 Mg Tablet 40 Mg PO QHS Paxil (Paroxetine Hcl) 40 Mg Tablet 40 Mg PO DAILY Vitamin D3 (Cholecalciferol (Vitamin D3)) 1,000 Unit Tablet 2,000 Unit PO DAILY Rytary ER 48.75 mg-195 mg Cap (Carbidopa/Levodopa) 1 Each Capsule.er 1 Cap PO DAILYWLUN Seroquel (Quetiapine Fumarate) 25 Mg Tablet 25 Mg PO HS Multivitamins (Multivitamin) 1 Each Tablet 1 Tab PO DAILY Midodrine Hcl 5 Mg Tablet 5 Mg PO TIDWMEALS Rytary ER 61.25 mg-245 mg Cap (Carbidopa/Levodopa) 1 Each Capsule.er 1 Cap PO TID AT11/23/2099 I have reviewed the current psychotropics carefully including drug interactions. Risk benefit ratio favors no change other than as noted in my dictated progress note. 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
--- NOTE | 2017-11-25 21:25 | PN ---
DATE: 11/24/2017 This is a late entry for 11/24/2017 covers elements not covered in my initial note. SUBJECTIVE: I met with the patient in the evening at length. The patient slept 7-3/4 hours previous night. She has had a good day. She tries to stand up, but is a fall risk. Has difficulty understanding the risk involved with her attempts to do this. She does take her medications. REVIEW OF SYSTEMS: Ambulation impaired, in wheelchair. No CV, , pulmonary, eye, ENT system symptoms on review. MENTAL STATUS EXAM: Oriented to herself and situation. Speech moderate latency, coherent. Abstraction fair, computation impaired, language function intact, attention span short. Mood and affect remain somewhat depressed, anxious, but improved. No suicidal or homicidal ideation. LABORATORY DATA: Reviewed. She has not been aggressive. IMPRESSION: Unchanged from initial note, major depressive disorder, recurrent with possible psychotic features; anxiety disorder, unspecified; cognitive disorder, unspecified versus mild cognitive impairment, Parkinson's disease. Rest unchanged. PLAN: Continue Seroquel, Paxil, Zyprexa. Treat the UTI. Make further adjustments as clinically indicated. MAN Alex KAUR MD DR: MADISYN/danya JOB#: [id number] / [id number]
[2017-11-26 05:43] VITALS: BP 185/92
[2017-11-26] MEDS: MAGNESIUM CHLORIDE ER 64 MG TABLET.ER PO SCH (08:22)
[2017-11-26] MEDS: MULTIVITAMIN with MINERAL TABLET. PO SCH (08:22)
[2017-11-26] MEDS: CHOLECALCIFEROL (VITAMIN D3) 1,000 UNIT TABLET PO SCH (08:22)
[2017-11-26] MEDS: PARoxetine 20 MG TABLET PO SCH (08:22)
[2017-11-26] MEDS: CEFPODOXIME PROXETIL 100 MG TABLET PO SCH ×2 (08:23→19:47)
[2017-11-26] MEDS: MIDODRINE 5 MG TABLET PO SCH ×3 (08:23→17:03)
[2017-11-26] MEDS: LACTOBACILLUS RHAMNOSUS GG 1 CAPSULE. PO SCH ×2 (08:23→19:47)
[2017-11-26] MEDS: RYTARY PO SCH ×4 (08:24→19:51)
[2017-11-26 09:52] LABS: ALBUMIN 3.3 g/dL (3.4-5.0); ALBUMIN/GLOBULIN RATIO 0.9 (1.0-1.7); CALCIUM 9.5 mg/dL (8.5-10.1); CREATININE 1.1 mg/dL (0.6-1.0); POTASSIUM 3.6 mmol/L (3.5-5.1); TOTAL BILIRUBIN 0.4 mg/dL (0.2-1.0); TOTAL PROTEIN 7.1 g/dL (6.4-8.2)
[2017-11-26 10:57] LABS: BASO # 0.1 x10^3/uL (0.0-0.2); BASO % 1 % (0-3); EOS # 0.2 x10^3/uL (0.0-0.7); EOS % 3 % (0-3); HEMATOCRIT 36.6 % (36.0-47.0); HEMOGLOBIN 12.3 g/dL (12.0-15.5); LYMPH # 1.1 x10^3/uL (1.0-4.8); LYMPH % 18 % (24-48); MEAN CORPUSCULAR HEMOGLOBIN 31 pg (25-35); MEAN CORPUSCULAR HGB CONC 34 g/dL (31-37); MEAN CORPUSCULAR VOLUME 91 fL (79-100); MONO # 0.4 x10^3/uL (0.0-1.1); MONO % 6 % (0-9); NEUT # 4.5 x10^3uL (1.8-7.7); NEUT % 72 % (31-73); PLATELET COUNT 241 x10^3/uL (140-400); RED BLOOD COUNT 4.02 x10^6/uL (3.50-5.40); WHITE BLOOD COUNT 6.3 x10^3/uL (4.0-11.0)
[2017-11-26 16:46] VITALS: BP 121/70
[2017-11-26] MEDS: ATORVASTATIN CALCIUM 20 MG TABLET PO SCH (19:47)
[2017-11-26] MEDS: QUEtiapine 25 MG TABLET. PO SCH (19:47)
--- NOTE | 2017-11-26 20:41 | PDOC ---
Exam Note: Chiki Note: Please also refer to the separate dictated note~for this date of service dictated separately.~Patient seen individually. Discussed the patient with Nursing staff reviewed the chart.~Reviewed interim history and current functioning. Reviewed vital signs,~Labs/ Radiology~and current medications noted below. Continue current treatment with the changes noted in the dictated addendum note Assessment: Vital Signs: Vital Signs Date Time Temp Pulse Resp B/P (MAP) Pulse Ox O2 Delivery O2 Flow Rate FiO2 11/26/17 17:03 76 121/70 11/26/17 16:46 98.7 16 95 11/25/17 16:46 Room Air I&O Intake and Output 11/26/17 07:00 Intake Total 1200 ml Balance 1200 ml Intake Oral 1200 ml # Voids 1 Labs: Laboratory Tests Test 11/26/17 09:18 11/26/17 09:28 Sodium Level 143 mmol/L (136-145) Potassium Level 3.6 mmol/L (3.5-5.1) Chloride Level 104 mmol/L (98-107) Carbon Dioxide Level 32 mmol/L (21-32) Anion Gap 7 (6-14) Blood Urea Nitrogen 22 mg/dL (7-20) H Creatinine 1.1 mg/dL (0.6-1.0) H Estimated GFR (Cockcroft-Gault) 47.0 BUN/Creatinine Ratio 20 (6-20) Glucose Level 136 mg/dL (70-99) H Calcium Level 9.5 mg/dL (8.5-10.1) Total Bilirubin 0.4 mg/dL (0.2-1.0) Aspartate Amino Transferase (AST) 20 U/L (15-37) Alanine Aminotransferase (ALT) 12 U/L (14-59) L Alkaline Phosphatase 96 U/L (46-116) Total Protein 7.1 g/dL (6.4-8.2) Albumin 3.3 g/dL (3.4-5.0) L Albumin/Globulin Ratio 0.9 (1.0-1.7) L White Blood Count 6.3 x10^3/uL (4.0-11.0) Red Blood Count 4.02 x10^6/uL (3.50-5.40) Hemoglobin 12.3 g/dL (12.0-15.5) Hematocrit 36.6 % (36.0-47.0) Mean Corpuscular Volume 91 fL (79-100) Mean Corpuscular Hemoglobin 31 pg (25-35) Mean Corpuscular Hemoglobin Concent 34 g/dL (31-37) Red Cell Distribution Width 15.0 % (11.5-14.5) H Platelet Count 241 x10^3/uL (140-400) Neutrophils (%) (Auto) 72 % (31-73) Lymphocytes (%) (Auto) 18 % (24-48) L Monocytes (%) (Auto) 6 % (0-9) Eosinophils (%) (Auto) 3 % (0-3) Basophils (%) (Auto) 1 % (0-3) Neutrophils # (Auto) 4.5 x10^3uL (1.8-7.7) Lymphocytes # (Auto) 1.1 x10^3/uL (1.0-4.8) Monocytes # (Auto) 0.4 x10^3/uL (0.0-1.1) Eosinophils # (Auto) 0.2 x10^3/uL (0.0-0.7) Basophils # (Auto) 0.1 x10^3/uL (0.0-0.2) Current Medications: Meds: Current Medications Acetaminophen (Tylenol) 650 mg PRN Q6HRS PRN PO PAIN / TEMP Last administered on 11/24/17at 09:44; Start 11/20/17 at 01:45 Multi-Ingredient Ointment (Analgesic [place]) 1 jay PRN QID PRN TP MUSCLE PAIN; Start 11/20/17 at 01:45 Al Hydroxide/Mg Hydroxide (Mylanta Plus Xs) 15 ml PRN AFTMEALHC PRN PO DYSPEPSIA; Start 11/20/17 at 01:45 Magnesium Hydroxide (Milk Of Magnesia) 2,400 mg PRN QHS PRN PO CONSTIPATION; Start 11/20/17 at 01:45 Olanzapine (ZyPREXA ZYDIS) 1.25 mg PRN Q2HR PRN PO PSYCHOSIS Last administered on 11/20/17at 10:58; Start 11/20/17 at 02:15 Quetiapine Fumarate (SEROquel) 25 mg QHS PO ; Start 11/20/17 at 02:30; Stop at 02:32; Status DC Quetiapine Fumarate (SEROquel) 25 mg QHS PO Last administered on 11/21/17 20: 47; Start 11/21/17 at 21:00; Stop 11/22/17 at 18:47; Status DC Vitamin D (Vitamin D3) 2,000 unit DAILY PO Last administered on 11/26/17 08:22 ; Start 11/20/17 at 09:00 Atorvastatin Calcium (Lipitor) 40 mg QHS PO Last administered on 11/26/17 19: 47; Start 11/20/17 at 21:00 Non-Formulary Medication (Carbidopa/ Levodopa (Rytary ER 48.75 mg-195 mg Cap)) 1 cap DAILYWLUN PO Last administered on 11/26/17 12:38; Start 11/20/17 at 12: 00 Non-Formulary Medication (Carbidopa/ Levodopa (Rytary ER 61.25 mg-245 mg Cap)) 1 cap TID@0900,1700,2100 PO Last administered on 11/26/17 19:51; Start at 09:00 Midodrine (Proamatine) 5 mg TIDWMEALS PO Last administered on 11/26/17 17:03; Start 11/20/17 at 12:00 Multivitamins/ Calcium (Thera-M Plus) 1 tab DAILY PO Last administered on 08:22; Start 11/20/17 at 09:00 Paroxetine HCl (Paxil) 40 mg DAILY PO Last administered on 11/26/17 08:22; Start 11/20/17 at 09:00 Magnesium Chloride (Mag Delay) 64 mg DAILY PO Last administered on 11/26/17 08 :22; Start 11/20/17 at 17:00 Cephalexin HCl (Keflex) 500 mg BID PO Last administered on 11/21/17 07:48; Start 11/20/17 at 15:00; Stop 11/21/17 at 16:50; Status DC Lactobacillus Rhamnosus (Culturelle) 1 cap BID PO Last administered on 19:47; Start 11/21/17 at 09:00 Cefpodoxime Proxetil (Vantin) 100 mg BID PO Last administered on 11/26/17 19: 47; Start 11/21/17 at 21:00; Stop 12/01/17 at 20:59 Quetiapine Fumarate (SEROquel) 37.5 mg QHS PO Last administered on 11/26/17at 19 :47; Start 11/22/17 at 21:00 Active Scripts Active Reported Atorvastatin Calcium 40 Mg Tablet 40 Mg PO QHS Paxil (Paroxetine Hcl) 40 Mg Tablet 40 Mg PO DAILY Vitamin D3 (Cholecalciferol (Vitamin D3)) 1,000 Unit Tablet 2,000 Unit PO DAILY Rytary ER 48.75 mg-195 mg Cap (Carbidopa/Levodopa) 1 Each Capsule.er 1 Cap PO DAILYWLUN Seroquel (Quetiapine Fumarate) 25 Mg Tablet 25 Mg PO HS Multivitamins (Multivitamin) 1 Each Tablet 1 Tab PO DAILY Midodrine Hcl 5 Mg Tablet 5 Mg PO TIDWMEALS Rytary ER 61.25 mg-245 mg Cap (Carbidopa/Levodopa) 1 Each Capsule.er 1 Cap PO TID AT11/23/2099 I have reviewed the current psychotropics carefully including drug interactions. Risk benefit ratio favors no change other than as noted in my dictated progress note. 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
[2017-11-27 06:14] VITALS: BP 179/74
[2017-11-27] MEDS: LACTOBACILLUS RHAMNOSUS GG 1 CAPSULE. PO SCH ×2 (08:10→19:55)
[2017-11-27] MEDS: PARoxetine 20 MG TABLET PO SCH (08:11)
[2017-11-27] MEDS: CHOLECALCIFEROL (VITAMIN D3) 1,000 UNIT TABLET PO SCH (08:11)
[2017-11-27] MEDS: MAGNESIUM CHLORIDE ER 64 MG TABLET.ER PO SCH (08:11)
[2017-11-27] MEDS: MIDODRINE 5 MG TABLET PO SCH ×3 (08:11→18:02)
[2017-11-27] MEDS: CEFPODOXIME PROXETIL 100 MG TABLET PO SCH ×2 (08:11→19:55)
[2017-11-27] MEDS: MULTIVITAMIN with MINERAL TABLET. PO SCH (08:11)
[2017-11-27] MEDS: RYTARY PO SCH ×4 (08:12→19:56)
[2017-11-27] MEDS: ACETAMINOPHEN 325 MG TABLET PO PRN (08:35)
[2017-11-27 16:42] VITALS: BP 143/84
[2017-11-27] MEDS: ATORVASTATIN CALCIUM 20 MG TABLET PO SCH (19:54)
[2017-11-27] MEDS: QUEtiapine 25 MG TABLET. PO SCH (19:54)
--- NOTE | 2017-11-27 20:44 | PDOC ---
Exam Note: Chiki Note: Please also refer to the separate dictated note~for this date of service dictated separately.~Patient seen individually. Discussed the patient with Nursing staff reviewed the chart.~Reviewed interim history and current functioning. Reviewed vital signs,~Labs/ Radiology~and current medications noted below. Continue current treatment with the changes noted in the dictated addendum note Assessment: Vital Signs: Vital Signs Date Time Temp Pulse Resp B/P (MAP) Pulse Ox O2 Delivery O2 Flow Rate FiO2 11/27/17 18:02 79 143/84 11/27/17 16:42 98.3 20 92 11/25/17 16:46 Room Air I&O Intake and Output 11/27/17 07:00 Intake Total 1078 ml Balance 1078 ml Intake Oral 1078 ml Current Medications: Meds: Current Medications Acetaminophen (Tylenol) 650 mg PRN Q6HRS PRN PO PAIN / TEMP Last administered on 11/27/17at 08:35; Start 11/20/17 at 01:45 Multi-Ingredient Ointment (Analgesic [place]) 1 jay PRN QID PRN TP MUSCLE PAIN; Start 11/20/17 at 01:45 Al Hydroxide/Mg Hydroxide (Mylanta Plus Xs) 15 ml PRN AFTMEALHC PRN PO DYSPEPSIA; Start 11/20/17 at 01:45 Magnesium Hydroxide (Milk Of Magnesia) 2,400 mg PRN QHS PRN PO CONSTIPATION; Start 11/20/17 at 01:45 Olanzapine (ZyPREXA ZYDIS) 1.25 mg PRN Q2HR PRN PO PSYCHOSIS Last administered on 11/20/17at 10:58; Start 11/20/17 at 02:15 Quetiapine Fumarate (SEROquel) 25 mg QHS PO ; Start 11/20/17 at 02:30; Stop at 02:32; Status DC Quetiapine Fumarate (SEROquel) 25 mg QHS PO Last administered on 11/21/17at 20: 47; Start 11/21/17 at 21:00; Stop 11/22/17 at 18:47; Status DC Vitamin D (Vitamin D3) 2,000 unit DAILY PO Last administered on 11/27/17at 08:11 ; Start 11/20/17 at 09:00 Atorvastatin Calcium (Lipitor) 40 mg QHS PO Last administered on 11/27/17 19: 54; Start 11/20/17 at 21:00 Non-Formulary Medication (Carbidopa/ Levodopa (Rytary ER 48.75 mg-195 mg Cap)) 1 cap DAILYWLUN PO Last administered on 11/27/17at 12:00; Start 11/20/17 at 12: 00 Non-Formulary Medication (Carbidopa/ Levodopa (Rytary ER 61.25 mg-245 mg Cap)) 1 cap TID@0900,1700,2100 PO Last administered on 11/27/17at 19:56; Start at 09:00 Midodrine (Proamatine) 5 mg TIDWMEALS PO Last administered on 11/27/17 18:02; Start 11/20/17 at 12:00 Multivitamins/ Calcium (Thera-M Plus) 1 tab DAILY PO Last administered on at 08:11; Start 11/20/17 at 09:00 Paroxetine HCl (Paxil) 40 mg DAILY PO Last administered on 11/27/17at 08:11; Start 11/20/17 at 09:00 Magnesium Chloride (Mag Delay) 64 mg DAILY PO Last administered on 11/27/17 08 :11; Start 11/20/17 at 17:00 Cephalexin HCl (Keflex) 500 mg BID PO Last administered on 11/21/17at 07:48; Start 11/20/17 at 15:00; Stop 11/21/17 at 16:50; Status DC Lactobacillus Rhamnosus (Culturelle) 1 cap BID PO Last administered on 19:55; Start 11/21/17 at 09:00 Cefpodoxime Proxetil (Vantin) 100 mg BID PO Last administered on 11/27/17 19: 55; Start 11/21/17 at 21:00; Stop 12/01/17 at 20:59 Quetiapine Fumarate (SEROquel) 37.5 mg QHS PO Last administered on 11/27/17 19 :54; Start 11/22/17 at 21:00 Buspirone HCl (Buspar) 5 mg DAILY PO ; Start 11/28/17 at 09:00 Active Scripts Active Reported Atorvastatin Calcium 40 Mg Tablet 40 Mg PO QHS Paxil (Paroxetine Hcl) 40 Mg Tablet 40 Mg PO DAILY Vitamin D3 (Cholecalciferol (Vitamin D3)) 1,000 Unit Tablet 2,000 Unit PO DAILY Rytary ER 48.75 mg-195 mg Cap (Carbidopa/Levodopa) 1 Each Capsule.er 1 Cap PO DAILYWLUN Seroquel (Quetiapine Fumarate) 25 Mg Tablet 25 Mg PO HS Multivitamins (Multivitamin) 1 Each Tablet 1 Tab PO DAILY Midodrine Hcl 5 Mg Tablet 5 Mg PO TIDWMEALS Rytary ER 61.25 mg-245 mg Cap (Carbidopa/Levodopa) 1 Each Capsule.er 1 Cap PO TID AT11/23/2099 I have reviewed the current psychotropics carefully including drug interactions. Risk benefit ratio favors no change other than as noted in my dictated progress note. 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
--- NOTE | 2017-11-27 23:03 | PN ---
DATE: 11/25/2017 PSYCHIATRIC PROGRESS NOTE This is a late entry 11/25/2017 covers elements not covered in my initial note. SUBJECTIVE: I met with the patient in the evening. The patient slept 7-1/2 hours previous night. She is overall less irritable, compliant with medications. Her son visited her. I talked to her and then she did better after this and then walked for a while. She does complain of pain. REVIEW OF SYSTEMS: Impaired ambulation with walker. No CV, , pulmonary, eye system symptoms on review. She does have the movement problems secondary to Parkinson's. MENTAL STATUS EXAM: Oriented to herself and situation. Speech is coherent, low in volume consistent with Parkinson's. Abstraction fair. Computation able to do one step on serial sevens, able to spell world forward no error, backward 2 errors. Mood remains somewhat dysphoric, anxious. Affect is mood congruent. No suicidal or homicidal ideation. LABORATORY DATA: Reviewed. IMPRESSION: Unchanged from initial note. PLAN: No change from initial note. Maintain Seroquel, Paxil, along with Zyprexa p.r.n. She is on Vantin for the UTI. MARIE KAUR MD DR: MADISYN/danya JOB#: [id number] / [id number]
--- NOTE | 2017-11-28 02:52 | PN ---
DATE: 11/26/2017 PSYCHIATRIC PROGRESS NOTE This late entry 11/26/2017 covers elements not covered in my initial note. SUBJECTIVE: I met with the patient in the evening, staffed at a treatment team meeting with the entire team in the morning. The patient slept 7-1/2 hours previous night. Her son, Juan and daughter, Kristen, attended the lengthy treatment team meeting. Reviewed the patient's diagnosis, medications, placement options. Juan very nicely reminded the staff that the patient responds negatively if staff are condescending and does much better in a very matter of fact courteous manner. Son was also concerned that [facility] had informed them that nature of the unit was different than what it is with the dementia patients. We will defer to the [place]ita, nursing meter and regulator shop supervisor, to facilitate communication. She does have a UTI and is on Vantin. REVIEW OF SYSTEMS: Ambulation impaired. No CV, , pulmonary, eye system symptoms on review. Movements impaired due to Parkinson's. MENTAL STATUS EXAM: Oriented to herself and situation. Speech has some latency, coherent. Abstraction fair, computation impaired. Mood and affect somewhat withdrawn, less labile. LABORATORY DATA: Reviewed. IMPRESSION: Unchanged from initial note. PLAN: No change from initial note. We will treat the UTI. Once this resolves, if symptoms persist, we will adjust psychotropics. MARIE KAUR MD DR: MADISYN/danya JOB#: [id number] / [id number]
[2017-11-28 06:39] VITALS: BP 135/87
[2017-11-28] MEDS: MULTIVITAMIN with MINERAL TABLET. PO SCH (08:02)
[2017-11-28] MEDS: CHOLECALCIFEROL (VITAMIN D3) 1,000 UNIT TABLET PO SCH (08:02)
[2017-11-28] MEDS: MIDODRINE 5 MG TABLET PO SCH ×3 (08:02→17:00)
[2017-11-28] MEDS: MAGNESIUM CHLORIDE ER 64 MG TABLET.ER PO SCH (08:03)
[2017-11-28] MEDS: CEFPODOXIME PROXETIL 100 MG TABLET PO SCH ×2 (08:03→20:22)
[2017-11-28] MEDS: LACTOBACILLUS RHAMNOSUS GG 1 CAPSULE. PO SCH ×2 (08:03→20:22)
[2017-11-28] MEDS: busPIRone 5 MG TABLET. PO SCH (08:06)
[2017-11-28] MEDS: RYTARY PO SCH ×4 (08:07→20:23)
[2017-11-28] MEDS: PARoxetine 20 MG TABLET PO SCH (08:09)
[2017-11-28] MEDS: ACETAMINOPHEN 325 MG TABLET PO PRN (10:25)
[2017-11-28 16:18] VITALS: BP 167/81
[2017-11-28] MEDS: QUEtiapine 25 MG TABLET. PO SCH (20:22)
[2017-11-28] MEDS: ATORVASTATIN CALCIUM 20 MG TABLET PO SCH (20:22)
--- NOTE | 2017-11-28 22:57 | PDOC ---
Exam Note: Chiki Note: Please also refer to the separate dictated note~for this date of service dictated separately.~Patient seen individually. Discussed the patient with Nursing staff reviewed the chart.~Reviewed interim history and current functioning. Reviewed vital signs,~Labs/ Radiology~and current medications noted below. Continue current treatment with the changes noted in the dictated addendum note Assessment: Vital Signs: Vital Signs Date Time Temp Pulse Resp B/P (MAP) Pulse Ox O2 Delivery O2 Flow Rate FiO2 11/28/17 17:00 77 167/81 11/28/17 16:18 98.3 20 92 11/28/17 06:39 Room Air I&O Intake and Output 11/28/17 07:00 Intake Total 960 ml Balance 960 ml Intake Oral 960 ml # Bowel Movements 1 Current Medications: Meds: Current Medications Acetaminophen (Tylenol) 650 mg PRN Q6HRS PRN PO PAIN / TEMP Last administered on 11/28/17at 10:25; Start 11/20/17 at 01:45 Multi-Ingredient Ointment (Analgesic [place]) 1 jay PRN QID PRN TP MUSCLE PAIN; Start 11/20/17 at 01:45 Al Hydroxide/Mg Hydroxide (Mylanta Plus Xs) 15 ml PRN AFTMEALHC PRN PO DYSPEPSIA; Start 11/20/17 at 01:45 Magnesium Hydroxide (Milk Of Magnesia) 2,400 mg PRN QHS PRN PO CONSTIPATION; Start 11/20/17 at 01:45 Olanzapine (ZyPREXA ZYDIS) 1.25 mg PRN Q2HR PRN PO PSYCHOSIS Last administered on 11/20/17at 10:58; Start 11/20/17 at 02:15 Quetiapine Fumarate (SEROquel) 25 mg QHS PO ; Start 11/20/17 at 02:30; Stop at 02:32; Status DC Quetiapine Fumarate (SEROquel) 25 mg QHS PO Last administered on 11/21/17at 20: 47; Start 11/21/17 at 21:00; Stop 11/22/17 at 18:47; Status DC Vitamin D (Vitamin D3) 2,000 unit DAILY PO Last administered on 11/28/17at 08:02 ; Start 11/20/17 at 09:00 Atorvastatin Calcium (Lipitor) 40 mg QHS PO Last administered on 11/28/17 20: 22; Start 11/20/17 at 21:00 Non-Formulary Medication (Carbidopa/ Levodopa (Rytary ER 48.75 mg-195 mg Cap)) 1 cap DAILYWLUN PO Last administered on 11/28/17at 11:17; Start 11/20/17 at 12: 00 Non-Formulary Medication (Carbidopa/ Levodopa (Rytary ER 61.25 mg-245 mg Cap)) 1 cap TID@0900,1700,2100 PO Last administered on 11/28/17 20:23; Start at 09:00 Midodrine (Proamatine) 5 mg TIDWMEALS PO Last administered on 11/28/17 11:18; Start 11/20/17 at 12:00 Multivitamins/ Calcium (Thera-M Plus) 1 tab DAILY PO Last administered on 08:02; Start 11/20/17 at 09:00 Paroxetine HCl (Paxil) 40 mg DAILY PO Last administered on 11/28/17 08:09; Start 11/20/17 at 09:00 Magnesium Chloride (Mag Delay) 64 mg DAILY PO Last administered on 11/28/17 08 :03; Start 11/20/17 at 17:00 Cephalexin HCl (Keflex) 500 mg BID PO Last administered on 11/21/17at 07:48; Start 11/20/17 at 15:00; Stop 11/21/17 at 16:50; Status DC Lactobacillus Rhamnosus (Culturelle) 1 cap BID PO Last administered on 20:22; Start 11/21/17 at 09:00 Cefpodoxime Proxetil (Vantin) 100 mg BID PO Last administered on 11/28/17 20: 22; Start 11/21/17 at 21:00; Stop 12/01/17 at 20:59 Quetiapine Fumarate (SEROquel) 37.5 mg QHS PO Last administered on 11/28/17 20 :22; Start 11/22/17 at 21:00 Buspirone HCl (Buspar) 5 mg DAILY PO Last administered on 11/28/17at 08:06; Start 11/28/17 at 09:00 Active Scripts Active Reported Atorvastatin Calcium 40 Mg Tablet 40 Mg PO QHS Paxil (Paroxetine Hcl) 40 Mg Tablet 40 Mg PO DAILY Vitamin D3 (Cholecalciferol (Vitamin D3)) 1,000 Unit Tablet 2,000 Unit PO DAILY Rytary ER 48.75 mg-195 mg Cap (Carbidopa/Levodopa) 1 Each Capsule.er 1 Cap PO DAILYWLUN Seroquel (Quetiapine Fumarate) 25 Mg Tablet 25 Mg PO HS Multivitamins (Multivitamin) 1 Each Tablet 1 Tab PO DAILY Midodrine Hcl 5 Mg Tablet 5 Mg PO TIDWMEALS Rytary ER 61.25 mg-245 mg Cap (Carbidopa/Levodopa) 1 Each Capsule.er 1 Cap PO TID AT11/23/2099 I have reviewed the current psychotropics carefully including drug interactions. Risk benefit ratio favors no change other than as noted in my dictated progress note. 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
[2017-11-29 06:12] VITALS: BP 176/82
[2017-11-29] MEDS: CHOLECALCIFEROL (VITAMIN D3) 1,000 UNIT TABLET PO SCH (08:33)
[2017-11-29] MEDS: LACTOBACILLUS RHAMNOSUS GG 1 CAPSULE. PO SCH ×2 (08:33→20:12)
[2017-11-29] MEDS: MULTIVITAMIN with MINERAL TABLET. PO SCH (08:33)
[2017-11-29] MEDS: busPIRone 5 MG TABLET. PO SCH (08:33)
[2017-11-29] MEDS: MIDODRINE 5 MG TABLET PO SCH ×3 (08:33→17:01)
[2017-11-29] MEDS: PARoxetine 20 MG TABLET PO SCH (08:34)
[2017-11-29] MEDS: MAGNESIUM CHLORIDE ER 64 MG TABLET.ER PO SCH (08:34)
[2017-11-29] MEDS: CEFPODOXIME PROXETIL 100 MG TABLET PO SCH ×2 (08:34→20:12)
[2017-11-29] MEDS: RYTARY PO SCH ×4 (08:35→20:13)
--- NOTE | 2017-11-29 08:52 | PN ---
DATE: 11/27/2017 This late entry 11/27/2017 covers elements not covered in my initial note. SUBJECTIVE: I met with the patient in the evening. The patient has been somewhat disorganized. Complains of pain all over her body. Gait is unsteady. She almost fell at the nursing station with nursing staff intervened. Remain somewhat anxious. REVIEW OF SYSTEMS: Ambulation impaired consequent to a Parkinson's. No CV, , pulmonary, eye, ENT system symptoms on review. Pain as mentioned above. MENTAL STATUS EXAM: Reasonably oriented. Speech is coherent, abstraction fair, computation impaired, language function intact, attention span short. Mood and affect somewhat dysphoric, anxious. LABORATORY DATA: Reviewed. IMPRESSION: Unchanged from initial note. PLAN: Start BuSpar 5 mg p.o. a.m. Maintain Paxil, Seroquel at current dosage. Adjust further as clinically indicated. MAN Alex KAUR MD DR: MADISYN/danya JOB#: [id number] / [id number]
[2017-11-29 16:27] VITALS: BP 156/78
[2017-11-29] MEDS: QUEtiapine 25 MG TABLET. PO SCH (20:12)
[2017-11-29] MEDS: ATORVASTATIN CALCIUM 20 MG TABLET PO SCH (20:12)
--- NOTE | 2017-11-29 20:58 | PDOC ---
Exam Note: Chiki Note: Please also refer to the separate dictated note~for this date of service dictated separately.~Patient seen individually. Discussed the patient with Nursing staff reviewed the chart.~Reviewed interim history and current functioning. Reviewed vital signs,~Labs/ Radiology~and current medications noted below. Continue current treatment with the changes noted in the dictated addendum note Assessment: Vital Signs: Vital Signs Date Time Temp Pulse Resp B/P (MAP) Pulse Ox O2 Delivery O2 Flow Rate FiO2 11/29/17 17:01 78 156/78 11/29/17 16:27 97.2 17 95 11/29/17 06:12 Room Air I&O Intake and Output 11/29/17 07:00 Intake Total 360 ml Balance 360 ml Intake Oral 360 ml Current Medications: Meds: Current Medications Acetaminophen (Tylenol) 650 mg PRN Q6HRS PRN PO PAIN / TEMP Last administered on 11/28/17at 10:25; Start 11/20/17 at 01:45 Multi-Ingredient Ointment (Analgesic [place]) 1 jay PRN QID PRN TP MUSCLE PAIN; Start 11/20/17 at 01:45 Al Hydroxide/Mg Hydroxide (Mylanta Plus Xs) 15 ml PRN AFTMEALHC PRN PO DYSPEPSIA; Start 11/20/17 at 01:45 Magnesium Hydroxide (Milk Of Magnesia) 2,400 mg PRN QHS PRN PO CONSTIPATION; Start 11/20/17 at 01:45 Olanzapine (ZyPREXA ZYDIS) 1.25 mg PRN Q2HR PRN PO PSYCHOSIS Last administered on 11/20/17at 10:58; Start 11/20/17 at 02:15 Quetiapine Fumarate (SEROquel) 25 mg QHS PO ; Start 11/20/17 at 02:30; Stop at 02:32; Status DC Quetiapine Fumarate (SEROquel) 25 mg QHS PO Last administered on 11/21/17at 20: 47; Start 11/21/17 at 21:00; Stop 11/22/17 at 18:47; Status DC Vitamin D (Vitamin D3) 2,000 unit DAILY PO Last administered on 11/29/17at 08:33 ; Start 11/20/17 at 09:00 Atorvastatin Calcium (Lipitor) 40 mg QHS PO Last administered on 11/29/17 20: 12; Start 11/20/17 at 21:00 Non-Formulary Medication (Carbidopa/ Levodopa (Rytary ER 48.75 mg-195 mg Cap)) 1 cap DAILYWLUN PO Last administered on 11/29/17 12:00; Start 11/20/17 at 12: 00 Non-Formulary Medication (Carbidopa/ Levodopa (Rytary ER 61.25 mg-245 mg Cap)) 1 cap TID@0900,1700,2100 PO Last administered on 11/29/17 20:13; Start at 09:00 Midodrine (Proamatine) 5 mg TIDWMEALS PO Last administered on 11/29/17 17:01; Start 11/20/17 at 12:00 Multivitamins/ Calcium (Thera-M Plus) 1 tab DAILY PO Last administered on 08:33; Start 11/20/17 at 09:00 Paroxetine HCl (Paxil) 40 mg DAILY PO Last administered on 11/29/17 08:34; Start 11/20/17 at 09:00 Magnesium Chloride (Mag Delay) 64 mg DAILY PO Last administered on 11/29/17 08 :34; Start 11/20/17 at 17:00 Cephalexin HCl (Keflex) 500 mg BID PO Last administered on 11/21/17 07:48; Start 11/20/17 at 15:00; Stop 11/21/17 at 16:50; Status DC Lactobacillus Rhamnosus (Culturelle) 1 cap BID PO Last administered on 20:12; Start 11/21/17 at 09:00 Cefpodoxime Proxetil (Vantin) 100 mg BID PO Last administered on 11/29/17 20: 12; Start 11/21/17 at 21:00; Stop 12/01/17 at 20:59 Quetiapine Fumarate (SEROquel) 37.5 mg QHS PO Last administered on 11/29/17 20 :12; Start 11/22/17 at 21:00 Buspirone HCl (Buspar) 5 mg DAILY PO Last administered on 11/29/17 08:33; Start 11/28/17 at 09:00 Active Scripts Active Reported Atorvastatin Calcium 40 Mg Tablet 40 Mg PO QHS Paxil (Paroxetine Hcl) 40 Mg Tablet 40 Mg PO DAILY Vitamin D3 (Cholecalciferol (Vitamin D3)) 1,000 Unit Tablet 2,000 Unit PO DAILY Rytary ER 48.75 mg-195 mg Cap (Carbidopa/Levodopa) 1 Each Capsule.er 1 Cap PO DAILYWLUN Seroquel (Quetiapine Fumarate) 25 Mg Tablet 25 Mg PO HS Multivitamins (Multivitamin) 1 Each Tablet 1 Tab PO DAILY Midodrine Hcl 5 Mg Tablet 5 Mg PO TIDWMEALS Rytary ER 61.25 mg-245 mg Cap (Carbidopa/Levodopa) 1 Each Capsule.er 1 Cap PO TID AT11/23/2099 I have reviewed the current psychotropics carefully including drug interactions. Risk benefit ratio favors no change other than as noted in my dictated progress note. 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
[2017-11-30 05:53] VITALS: BP 188/98
[2017-11-30] MEDS: MIDODRINE 5 MG TABLET PO SCH ×3 (07:43→17:33)
[2017-11-30] MEDS: RYTARY PO SCH ×4 (07:44→20:16)
[2017-11-30] MEDS: busPIRone 5 MG TABLET. PO SCH (07:44)
[2017-11-30] MEDS: LACTOBACILLUS RHAMNOSUS GG 1 CAPSULE. PO SCH ×3 (07:45→20:16)
[2017-11-30] MEDS: MAGNESIUM CHLORIDE ER 64 MG TABLET.ER PO SCH ×2 (07:45→08:04)
[2017-11-30] MEDS: MULTIVITAMIN with MINERAL TABLET. PO SCH ×2 (07:46→08:04)
[2017-11-30] MEDS: PARoxetine 20 MG TABLET PO SCH ×2 (07:46→08:04)
[2017-11-30] MEDS: CEFPODOXIME PROXETIL 100 MG TABLET PO SCH ×2 (07:50→20:16)
[2017-11-30] MEDS: CHOLECALCIFEROL (VITAMIN D3) 1,000 UNIT TABLET PO SCH ×2 (07:50→08:05)
[2017-11-30] MEDS: ACETAMINOPHEN 325 MG TABLET PO PRN ×2 (09:17→20:23)
[2017-11-30 16:06] VITALS: BP 124/82
[2017-11-30] MEDS: QUEtiapine 25 MG TABLET. PO SCH (20:16)
[2017-11-30] MEDS: ATORVASTATIN CALCIUM 20 MG TABLET PO SCH (20:16)
--- NOTE | 2017-11-30 21:10 | PN ---
DATE: 11/28/2017 This is a late entry for 11/28/2017 covers elements not covered in my initial note. SUBJECTIVE: I met with the patient in the evening. The patient's son, Klever that visited brought her a burger from [employer] and she was very pleased with this. She remains somewhat anxious at times, but overall doing better. REVIEW OF SYSTEMS: Ambulation impaired with walker. No CV, , pulmonary, eye, ENT system symptoms on review. MENTAL STATUS EXAM: Oriented to herself and situation. Speech is coherent. She is very pleasant as I met with her. Mood and affect, somewhat dysphoric, anxious, but improved. No suicidal or homicidal ideation. No clear psychotic symptoms. LABORATORY DATA: Reviewed. IMPRESSION: Unchanged from initial note, major depressive disorder, recurrent; cognitive disorder, unspecified; Parkinson's disease, anxiety disorder, unspecified. PLAN: Continue Paxil, Seroquel, BuSpar at current dosage. May need to increase BuSpar gradually. MARIE KAUR MD DR: MADISYN/danya JOB#: [id number] / [id number]
--- NOTE | 2017-11-30 21:12 | PN ---
DATE: 11/29/2017 This is a late entry for 11/29/2017 covers elements not covered in my initial note. SUBJECTIVE: I met with the patient in the evening. The patient slept 10 hours previous night. She is compliant with her medications. She had put herself on the floor in the evening and when I questioned her, she said this was because she wanted to do exercises on the floor, get her strength back from the Parkinson's. She ambulates with a walker, compliant with medications. REVIEW OF SYSTEMS: No CV, , pulmonary, eye, ENT system symptoms on review. MENTAL STATUS EXAM: Oriented to herself and situation. Speech is coherent, has some latency. Abstraction fair, computation impaired, language function intact, attention span short. Mood and affect somewhat withdrawn. LABORATORY DATA: Reviewed. IMPRESSION: Unchanged from initial note. PLAN: No change from initial note. MAN Alex KAUR MD DR: MADISYN/danya JOB#: [id number] / [id number]
--- NOTE | 2017-11-30 22:42 | PDOC ---
Exam Note: Chiki Note: Please also refer to the separate dictated note~for this date of service dictated separately.~Patient seen individually. Discussed the patient with Nursing staff reviewed the chart.~Reviewed interim history and current functioning. Reviewed vital signs,~Labs/ Radiology~and current medications noted below. Continue current treatment with the changes noted in the dictated addendum note Assessment: Vital Signs: Vital Signs Date Time Temp Pulse Resp B/P (MAP) Pulse Ox O2 Delivery O2 Flow Rate FiO2 11/30/17 17:33 81 124/82 11/30/17 16:06 98.1 17 96 Room Air I&O Intake and Output 11/30/17 07:00 Intake Total 1060 ml Balance 1060 ml Intake Oral 1060 ml # Bowel Movements 1 Current Medications: Meds: Current Medications Acetaminophen (Tylenol) 650 mg PRN Q6HRS PRN PO PAIN / TEMP Last administered on 11/30/17at 20:23; Start 11/20/17 at 01:45 Multi-Ingredient Ointment (Analgesic [place]) 1 jay PRN QID PRN TP MUSCLE PAIN; Start 11/20/17 at 01:45 Al Hydroxide/Mg Hydroxide (Mylanta Plus Xs) 15 ml PRN AFTMEALHC PRN PO DYSPEPSIA; Start 11/20/17 at 01:45 Magnesium Hydroxide (Milk Of Magnesia) 2,400 mg PRN QHS PRN PO CONSTIPATION; Start 11/20/17 at 01:45 Olanzapine (ZyPREXA ZYDIS) 1.25 mg PRN Q2HR PRN PO PSYCHOSIS Last administered on 11/20/17at 10:58; Start 11/20/17 at 02:15 Quetiapine Fumarate (SEROquel) 25 mg QHS PO ; Start 11/20/17 at 02:30; Stop at 02:32; Status DC Quetiapine Fumarate (SEROquel) 25 mg QHS PO Last administered on 11/21/17at 20: 47; Start 11/21/17 at 21:00; Stop 11/22/17 at 18:47; Status DC Vitamin D (Vitamin D3) 2,000 unit DAILY PO Last administered on 11/29/17at 08:33 ; Start 11/20/17 at 09:00 Atorvastatin Calcium (Lipitor) 40 mg QHS PO Last administered on 9/24/18at 20: 16; Start 11/20/17 at 21:00 Non-Formulary Medication (Carbidopa/ Levodopa (Rytary ER 48.75 mg-195 mg Cap)) 1 cap DAILYWLUN PO Last administered on 11/30/17 13:21; Start 11/20/17 at 12: 00 Non-Formulary Medication (Carbidopa/ Levodopa (Rytary ER 61.25 mg-245 mg Cap)) 1 cap TID@0900,1700,2100 PO Last administered on 11/30/17 20:16; Start at 09:00 Midodrine (Proamatine) 5 mg TIDWMEALS PO Last administered on 11/30/17 17:33; Start 11/20/17 at 12:00 Multivitamins/ Calcium (Thera-M Plus) 1 tab DAILY PO Last administered on 08:33; Start 11/20/17 at 09:00 Paroxetine HCl (Paxil) 40 mg DAILY PO Last administered on 11/29/17 08:34; Start 11/20/17 at 09:00 Magnesium Chloride (Mag Delay) 64 mg DAILY PO Last administered on 11/29/17 08 :34; Start 11/20/17 at 17:00 Cephalexin HCl (Keflex) 500 mg BID PO Last administered on 11/21/17 07:48; Start 11/20/17 at 15:00; Stop 11/21/17 at 16:50; Status DC Lactobacillus Rhamnosus (Culturelle) 1 cap BID PO Last administered on 20:16; Start 11/21/17 at 09:00 Cefpodoxime Proxetil (Vantin) 100 mg BID PO Last administered on 11/30/17 20: 16; Start 11/21/17 at 21:00; Stop 12/01/17 at 20:59 Quetiapine Fumarate (SEROquel) 37.5 mg QHS PO Last administered on 11/30/17 20 :16; Start 11/22/17 at 21:00 Buspirone HCl (Buspar) 5 mg DAILY PO Last administered on 11/30/17 07:44; Start 11/28/17 at 09:00 Active Scripts Active Reported Atorvastatin Calcium 40 Mg Tablet 40 Mg PO QHS Paxil (Paroxetine Hcl) 40 Mg Tablet 40 Mg PO DAILY Vitamin D3 (Cholecalciferol (Vitamin D3)) 1,000 Unit Tablet 2,000 Unit PO DAILY Rytary ER 48.75 mg-195 mg Cap (Carbidopa/Levodopa) 1 Each Capsule.er 1 Cap PO DAILYWLUN Seroquel (Quetiapine Fumarate) 25 Mg Tablet 25 Mg PO HS Multivitamins (Multivitamin) 1 Each Tablet 1 Tab PO DAILY Midodrine Hcl 5 Mg Tablet 5 Mg PO TIDWMEALS Rytary ER 61.25 mg-245 mg Cap (Carbidopa/Levodopa) 1 Each Capsule.er 1 Cap PO TID AT11/23/2099 I have reviewed the current psychotropics carefully including drug interactions. Risk benefit ratio favors no change other than as noted in my dictated progress note. 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
[2017-12-01 05:38] VITALS: BP 160/73
[2017-12-01] MEDS: MAGNESIUM CHLORIDE ER 64 MG TABLET.ER PO SCH (07:16)
[2017-12-01] MEDS: busPIRone 5 MG TABLET. PO SCH (07:16)
[2017-12-01] MEDS: CHOLECALCIFEROL (VITAMIN D3) 1,000 UNIT TABLET PO SCH (07:17)
[2017-12-01] MEDS: MULTIVITAMIN with MINERAL TABLET. PO SCH (07:17)
[2017-12-01] MEDS: CEFPODOXIME PROXETIL 100 MG TABLET PO SCH (07:17)
[2017-12-01] MEDS: LACTOBACILLUS RHAMNOSUS GG 1 CAPSULE. PO SCH ×2 (07:17→19:34)
[2017-12-01] MEDS: PARoxetine 20 MG TABLET PO SCH (07:17)
[2017-12-01] MEDS: MIDODRINE 5 MG TABLET PO SCH ×3 (07:17→17:42)
[2017-12-01] MEDS: RYTARY PO SCH ×4 (07:18→19:38)
[2017-12-01 15:42] VITALS: BP 169/90
[2017-12-01] MEDS: QUEtiapine 25 MG TABLET. PO SCH (19:35)
[2017-12-01] MEDS: ATORVASTATIN CALCIUM 20 MG TABLET PO SCH (19:35)
[2017-12-01] MEDS: ACETAMINOPHEN 325 MG TABLET PO PRN (20:19)
--- NOTE | 2017-12-01 20:50 | PN ---
DATE: 11/30/2017 PSYCHIATRIC PROGRESS NOTE This late entry, 11/30/2017, covers elements not covered in my initial note. SUBJECTIVE: I met with the patient in the evening. The patient slept 5 hours previous night. She ambulates with a walker, picks and chooses what medications she takes, somewhat withdrawn; had a fall, but no injuries, refused occupational therapy once again. REVIEW OF SYSTEMS: Ambulation impaired with walker, consequent to a Parkinson's. No CV, , pulmonary, eye system symptoms on review. MENTAL STATUS EXAM: Reasonably oriented. Speech is coherent, abstraction fair. Computation able to do one step serial 7's. Short term memory remembered 2/3 objects at 3 minutes. No active suicidal or homicidal ideation. Mood remains somewhat anxious, dysphoric, but improved. LABORATORY DATA: Reviewed. IMPRESSION: Unchanged from initial note. PLAN: No change from initial note. Maintain Paxil, Seroquel, BuSpar, along with Zypnicanora p.r.n. MARIE KAUR MD DR: MADISYN/danya JOB#: [id number] / [id number]
--- NOTE | 2017-12-01 20:52 | PDOC ---
Exam Note: Chiki Note: Please also refer to the separate dictated note~for this date of service dictated separately.~Patient seen individually. Discussed the patient with Nursing staff reviewed the chart.~Reviewed interim history and current functioning. Reviewed vital signs,~Labs/ Radiology~and current medications noted below. Continue current treatment with the changes noted in the dictated addendum note Assessment: Vital Signs: Vital Signs Date Time Temp Pulse Resp B/P (MAP) Pulse Ox O2 Delivery O2 Flow Rate FiO2 12/01/17 17:42 74 169/90 12/01/17 15:42 97.9 20 95 Room Air I&O Intake and Output 12/01/17 07:00 Intake Total 840 ml Balance 840 ml Intake Oral 840 ml # Bowel Movements 1 Current Medications: Meds: Current Medications Acetaminophen (Tylenol) 650 mg PRN Q6HRS PRN PO PAIN / TEMP Last administered on 12/01/17at 20:19; Start 11/20/17 at 01:45 Multi-Ingredient Ointment (Analgesic [place]) 1 jay PRN QID PRN TP MUSCLE PAIN; Start 11/20/17 at 01:45 Al Hydroxide/Mg Hydroxide (Mylanta Plus Xs) 15 ml PRN AFTMEALHC PRN PO DYSPEPSIA; Start 11/20/17 at 01:45 Magnesium Hydroxide (Milk Of Magnesia) 2,400 mg PRN QHS PRN PO CONSTIPATION; Start 11/20/17 at 01:45 Olanzapine (ZyPREXA ZYDIS) 1.25 mg PRN Q2HR PRN PO PSYCHOSIS Last administered on 11/20/17at 10:58; Start 11/20/17 at 02:15 Quetiapine Fumarate (SEROquel) 25 mg QHS PO ; Start 11/20/17 at 02:30; Stop at 02:32; Status DC Quetiapine Fumarate (SEROquel) 25 mg QHS PO Last administered on 11/21/17at 20: 47; Start 11/21/17 at 21:00; Stop 11/22/17 at 18:47; Status DC Vitamin D (Vitamin D3) 2,000 unit DAILY PO Last administered on 12/01/17at 07:17 ; Start 11/20/17 at 09:00 Atorvastatin Calcium (Lipitor) 40 mg QHS PO Last administered on 9/25/18at 19: 35; Start 11/20/17 at 21:00 Non-Formulary Medication (Carbidopa/ Levodopa (Rytary ER 48.75 mg-195 mg Cap)) 1 cap DAILYWLUN PO Last administered on 12/01/17 11:37; Start 11/20/17 at 12: 00 Non-Formulary Medication (Carbidopa/ Levodopa (Rytary ER 61.25 mg-245 mg Cap)) 1 cap TID@0900,1700,2100 PO Last administered on 12/01/17 19:38; Start at 09:00 Midodrine (Proamatine) 5 mg TIDWMEALS PO Last administered on 12/01/17 17:42; Start 11/20/17 at 12:00 Multivitamins/ Calcium (Thera-M Plus) 1 tab DAILY PO Last administered on 07:17; Start 11/20/17 at 09:00 Paroxetine HCl (Paxil) 40 mg DAILY PO Last administered on 12/01/17 07:17; Start 11/20/17 at 09:00 Magnesium Chloride (Mag Delay) 64 mg DAILY PO Last administered on 12/01/17 07 :16; Start 11/20/17 at 17:00 Cephalexin HCl (Keflex) 500 mg BID PO Last administered on 11/21/17 07:48; Start 11/20/17 at 15:00; Stop 11/21/17 at 16:50; Status DC Lactobacillus Rhamnosus (Culturelle) 1 cap BID PO Last administered on 19:34; Start 11/21/17 at 09:00 Cefpodoxime Proxetil (Vantin) 100 mg BID PO Last administered on 12/01/17 07: 17; Start 11/21/17 at 21:00; Stop 12/01/17 at 20:59 Quetiapine Fumarate (SEROquel) 37.5 mg QHS PO Last administered on 12/01/17 19 :35; Start 11/22/17 at 21:00 Buspirone HCl (Buspar) 5 mg DAILY PO Last administered on 12/01/17 07:16; Start 11/28/17 at 09:00 Active Scripts Active Reported Atorvastatin Calcium 40 Mg Tablet 40 Mg PO QHS Paxil (Paroxetine Hcl) 40 Mg Tablet 40 Mg PO DAILY Vitamin D3 (Cholecalciferol (Vitamin D3)) 1,000 Unit Tablet 2,000 Unit PO DAILY Rytary ER 48.75 mg-195 mg Cap (Carbidopa/Levodopa) 1 Each Capsule.er 1 Cap PO DAILYWLUN Seroquel (Quetiapine Fumarate) 25 Mg Tablet 25 Mg PO HS Multivitamins (Multivitamin) 1 Each Tablet 1 Tab PO DAILY Midodrine Hcl 5 Mg Tablet 5 Mg PO TIDWMEALS Rytary ER 61.25 mg-245 mg Cap (Carbidopa/Levodopa) 1 Each Capsule.er 1 Cap PO TID AT11/23/2099 I have reviewed the current psychotropics carefully including drug interactions. Risk benefit ratio favors no change other than as noted in my dictated progress note. 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
[2017-12-02 05:34] VITALS: BP 169/97
[2017-12-02 07:06] LABS: BASO # 0.1 x10^3/uL (0.0-0.2); BASO % 2 % (0-3); EOS # 0.3 x10^3/uL (0.0-0.7); EOS % 5 % (0-3); HEMATOCRIT 36.5 % (36.0-47.0); HEMOGLOBIN 12.2 g/dL (12.0-15.5); LYMPH # 1.2 x10^3/uL (1.0-4.8); LYMPH % 21 % (24-48); MEAN CORPUSCULAR HEMOGLOBIN 30 pg (25-35); MEAN CORPUSCULAR HGB CONC 34 g/dL (31-37); MEAN CORPUSCULAR VOLUME 88 fL (79-100); MONO # 0.5 x10^3/uL (0.0-1.1); MONO % 9 % (0-9); NEUT # 3.7 x10^3uL (1.8-7.7); NEUT % 64 % (31-73); PLATELET COUNT 260 x10^3/uL (140-400); RED BLOOD COUNT 4.15 x10^6/uL (3.50-5.40); RED CELL DISTRIBUTION WIDTH 14.5 % (11.5-14.5); WHITE BLOOD COUNT 5.9 x10^3/uL (4.0-11.0)
[2017-12-02 07:19] LABS: ALBUMIN 3.3 g/dL (3.4-5.0); ALBUMIN/GLOBULIN RATIO 0.9 (1.0-1.7); CALCIUM 9.3 mg/dL (8.5-10.1); GFR 52.4; POTASSIUM 3.6 mmol/L (3.5-5.1); TOTAL BILIRUBIN 0.4 mg/dL (0.2-1.0); TOTAL PROTEIN 6.9 g/dL (6.4-8.2)
[2017-12-02] MEDS: MIDODRINE 5 MG TABLET PO SCH ×3 (08:00→16:22)
[2017-12-02] MEDS: MAGNESIUM CHLORIDE ER 64 MG TABLET.ER PO SCH (09:00)
[2017-12-02] MEDS: CHOLECALCIFEROL (VITAMIN D3) 1,000 UNIT TABLET PO SCH (09:00)
[2017-12-02] MEDS: MULTIVITAMIN with MINERAL TABLET. PO SCH (09:00)
[2017-12-02] MEDS: LACTOBACILLUS RHAMNOSUS GG 1 CAPSULE. PO SCH ×2 (09:00→19:10)
[2017-12-02] MEDS: RYTARY PO SCH ×4 (09:42→19:09)
[2017-12-02] MEDS: busPIRone 5 MG TABLET. PO SCH (09:42)
[2017-12-02] MEDS: PARoxetine 20 MG TABLET PO SCH (09:43)
[2017-12-02] MEDS: ACETAMINOPHEN 325 MG TABLET PO PRN (11:55)
[2017-12-02 16:18] VITALS: BP 125/76
[2017-12-02] MEDS: QUEtiapine 25 MG TABLET. PO SCH (19:10)
[2017-12-02] MEDS: ATORVASTATIN CALCIUM 20 MG TABLET PO SCH (19:10)
--- NOTE | 2017-12-02 20:43 | PDOC ---
Exam Note: Chiki Note: Please also refer to the separate dictated note~for this date of service dictated separately.~Patient seen individually. Discussed the patient with Nursing staff reviewed the chart.~Reviewed interim history and current functioning. Reviewed vital signs,~Labs/ Radiology~and current medications noted below. Continue current treatment with the changes noted in the dictated addendum note Assessment: Vital Signs: Vital Signs Date Time Temp Pulse Resp B/P (MAP) Pulse Ox O2 Delivery O2 Flow Rate FiO2 12/02/17 16:22 82 125/76 12/02/17 16:18 98.2 18 91 12/01/17 15:42 Room Air I&O Intake and Output 12/02/17 07:00 Intake Total 840 ml Balance 840 ml Intake Oral 840 ml # Bowel Movements 1 Labs: Laboratory Tests Test 12/02/17 06:48 White Blood Count 5.9 x10^3/uL (4.0-11.0) Red Blood Count 4.15 x10^6/uL (3.50-5.40) Hemoglobin 12.2 g/dL (12.0-15.5) Hematocrit 36.5 % (36.0-47.0) Mean Corpuscular Volume 88 fL (79-100) Mean Corpuscular Hemoglobin 30 pg (25-35) Mean Corpuscular Hemoglobin Concent 34 g/dL (31-37) Red Cell Distribution Width 14.5 % (11.5-14.5) Platelet Count 260 x10^3/uL (140-400) Neutrophils (%) (Auto) 64 % (31-73) Lymphocytes (%) (Auto) 21 % (24-48) L Monocytes (%) (Auto) 9 % (0-9) Eosinophils (%) (Auto) 5 % (0-3) H Basophils (%) (Auto) 2 % (0-3) Neutrophils # (Auto) 3.7 x10^3uL (1.8-7.7) Lymphocytes # (Auto) 1.2 x10^3/uL (1.0-4.8) Monocytes # (Auto) 0.5 x10^3/uL (0.0-1.1) Eosinophils # (Auto) 0.3 x10^3/uL (0.0-0.7) Basophils # (Auto) 0.1 x10^3/uL (0.0-0.2) Sodium Level 141 mmol/L (136-145) Potassium Level 3.6 mmol/L (3.5-5.1) Chloride Level 104 mmol/L (98-107) Carbon Dioxide Level 32 mmol/L (21-32) Anion Gap 5 (6-14) L Blood Urea Nitrogen 23 mg/dL (7-20) H Creatinine 1.0 mg/dL (0.6-1.0) Estimated GFR (Cockcroft-Gault) 52.4 BUN/Creatinine Ratio 23 (6-20) H Glucose Level 122 mg/dL (70-99) H Calcium Level 9.3 mg/dL (8.5-10.1) Total Bilirubin 0.4 mg/dL (0.2-1.0) Aspartate Amino Transferase (AST) 27 U/L (15-37) Alanine Aminotransferase (ALT) 11 U/L (14-59) L Alkaline Phosphatase 100 U/L (46-116) Total Protein 6.9 g/dL (6.4-8.2) Albumin 3.3 g/dL (3.4-5.0) L Albumin/Globulin Ratio 0.9 (1.0-1.7) L Current Medications: Meds: Current Medications Acetaminophen (Tylenol) 650 mg PRN Q6HRS PRN PO PAIN / TEMP Last administered on 12/02/17at 11:55; Start 11/20/17 at 01:45 Multi-Ingredient Ointment (Analgesic [place]) 1 jay PRN QID PRN TP MUSCLE PAIN; Start 11/20/17 at 01:45 Al Hydroxide/Mg Hydroxide (Mylanta Plus Xs) 15 ml PRN AFTMEALHC PRN PO DYSPEPSIA; Start 11/20/17 at 01:45 Magnesium Hydroxide (Milk Of Magnesia) 2,400 mg PRN QHS PRN PO CONSTIPATION; Start 11/20/17 at 01:45 Olanzapine (ZyPREXA ZYDIS) 1.25 mg PRN Q2HR PRN PO PSYCHOSIS Last administered on 11/20/17at 10:58; Start 11/20/17 at 02:15 Quetiapine Fumarate (SEROquel) 25 mg QHS PO ; Start 11/20/17 at 02:30; Stop at 02:32; Status DC Quetiapine Fumarate (SEROquel) 25 mg QHS PO Last administered on 11/21/17 20: 47; Start 11/21/17 at 21:00; Stop 11/22/17 at 18:47; Status DC Vitamin D (Vitamin D3) 2,000 unit DAILY PO Last administered on 12/01/17 07:17 ; Start 11/20/17 at 09:00 Atorvastatin Calcium (Lipitor) 40 mg QHS PO Last administered on 12/02/17 19: 10; Start 11/20/17 at 21:00 Non-Formulary Medication (Carbidopa/ Levodopa (Rytary ER 48.75 mg-195 mg Cap)) 1 cap DAILYWLUN PO Last administered on 12/02/17 11:49; Start 11/20/17 at 12: 00 Non-Formulary Medication (Carbidopa/ Levodopa (Rytary ER 61.25 mg-245 mg Cap)) 1 cap TID@0900,1700,2100 PO Last administered on 12/02/17 19:09; Start at 09:00 Midodrine (Proamatine) 5 mg TIDWMEALS PO Last administered on 12/02/17 16:22; Start 11/20/17 at 12:00 Multivitamins/ Calcium (Thera-M Plus) 1 tab DAILY PO Last administered on 07:17; Start 11/20/17 at 09:00 Paroxetine HCl (Paxil) 40 mg DAILY PO Last administered on 12/02/17at 09:43; Start 11/20/17 at 09:00 Magnesium Chloride (Mag Delay) 64 mg DAILY PO Last administered on 12/01/17 07 :16; Start 11/20/17 at 17:00 Cephalexin HCl (Keflex) 500 mg BID PO Last administered on 11/21/17 07:48; Start 11/20/17 at 15:00; Stop 11/21/17 at 16:50; Status DC Lactobacillus Rhamnosus (Culturelle) 1 cap BID PO Last administered on 19:10; Start 11/21/17 at 09:00 Cefpodoxime Proxetil (Vantin) 100 mg BID PO Last administered on 12/01/17 07: 17; Start 11/21/17 at 21:00; Stop 12/01/17 at 20:59; Status DC Quetiapine Fumarate (SEROquel) 37.5 mg QHS PO Last administered on 12/02/17at 19 :10; Start 11/22/17 at 21:00 Buspirone HCl (Buspar) 5 mg DAILY PO Last administered on 12/02/17at 09:42; Start 11/28/17 at 09:00 Active Scripts Active Reported Atorvastatin Calcium 40 Mg Tablet 40 Mg PO QHS Paxil (Paroxetine Hcl) 40 Mg Tablet 40 Mg PO DAILY Vitamin D3 (Cholecalciferol (Vitamin D3)) 1,000 Unit Tablet 2,000 Unit PO DAILY Rytary ER 48.75 mg-195 mg Cap (Carbidopa/Levodopa) 1 Each Capsule.er 1 Cap PO DAILYWLUN Seroquel (Quetiapine Fumarate) 25 Mg Tablet 25 Mg PO HS Multivitamins (Multivitamin) 1 Each Tablet 1 Tab PO DAILY Midodrine Hcl 5 Mg Tablet 5 Mg PO TIDWMEALS Rytary ER 61.25 mg-245 mg Cap (Carbidopa/Levodopa) 1 Each Capsule.er 1 Cap PO TID AT11/23/2099 I have reviewed the current psychotropics carefully including drug interactions. Risk benefit ratio favors no change other than as noted in my dictated progress note. 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
--- NOTE | 2017-12-02 23:08 | PN ---
DATE: 12/01/2017 This is a late entry for 12/01/2017 covers elements not covered in my initial note. SUBJECTIVE: I met with the patient in the evening. The patient slept 8 hours previous night. She ambulates with a walker. Family visited. UA and CBC are being repeated. She picks and chooses what medication she takes, but behaviorally, she is doing better, not agitated, aggressive. REVIEW OF SYSTEMS: Ambulation impaired. No CV, , pulmonary, eye system symptoms on review. MENTAL STATUS EXAM: Reasonably oriented. Speech has some latency, coherent. Abstraction fair, computation impaired, language function intact, attention span short. Mood and affect somewhat anxious, withdrawn at times, other times better. LABORATORY DATA: Reviewed. IMPRESSION: Unchanged from initial note. PLAN: No change from initial note. MAN Alex KAUR MD DR: MADISYN/danya JOB#: [id number] / [id number]
[2017-12-03] MEDS ORDERED: ACET325T9 PO (01:15)
[2017-12-03] MEDS ORDERED: LACT1CAP19 PO (01:16)
[2017-12-03] MEDS ORDERED: MAG30ORA2 PO (01:17)
[2017-12-03] MEDS ORDERED: MAGN2400 PO (01:18)
[2017-12-03] MEDS ORDERED: MAGN64TA6 PO (01:18)
[2017-12-03] MEDS ORDERED: METH29OI TP (01:19)
[2017-12-03] MEDS ORDERED: OLAN5TAB5 PO (01:20)
[2017-12-03] MEDS ORDERED: BUSP10TA PO (01:23)
[2017-12-03 05:19] VITALS: BP 185/98
[2017-12-03] MEDS: LACTOBACILLUS RHAMNOSUS GG 1 CAPSULE. PO SCH ×2 (09:05→19:42)
[2017-12-03] MEDS: CHOLECALCIFEROL (VITAMIN D3) 1,000 UNIT TABLET PO SCH (09:05)
[2017-12-03] MEDS: busPIRone 5 MG TABLET. PO SCH (09:05)
[2017-12-03] MEDS: PARoxetine 20 MG TABLET PO SCH (09:05)
[2017-12-03] MEDS: MULTIVITAMIN with MINERAL TABLET. PO SCH (09:05)
[2017-12-03] MEDS: MAGNESIUM CHLORIDE ER 64 MG TABLET.ER PO SCH (09:06)
[2017-12-03] MEDS: MIDODRINE 5 MG TABLET PO SCH ×3 (09:06→16:51)
[2017-12-03] MEDS: RYTARY PO SCH ×4 (09:09→19:46)
[2017-12-03 09:24] VITALS: BP 124/74
[2017-12-03 15:49] VITALS: BP 144/87
[2017-12-03 16:20] LABS: BACTERIA,URINE FEW /HPF (0-FEW); BILIRUBIN,URINE NEG (NEG); CLARITY,URINE CLEAR; COLOR,URINE YELLOW; GLUCOSE,URINE NEG (NEG); HYALINE CASTS, URINE OCC /HPF; NITRITE,URINE NEG (NEG); RBC,URINE 0 /HPF (0-2); SQUAMOUS EPITHELIAL CELL,UR FEW /LPF; UROBILINOGEN,URINE 0.2 mg/dL (0.2 mg/dL)
[2017-12-03] MEDS: ATORVASTATIN CALCIUM 20 MG TABLET PO SCH (19:42)
[2017-12-03] MEDS: QUEtiapine 25 MG TABLET. PO SCH (19:43)
--- NOTE | 2017-12-03 20:25 | PDOC ---
Exam Note: Chiki Note: Please also refer to the separate dictated note~for this date of service dictated separately.~Patient seen individually. Discussed the patient with Nursing staff reviewed the chart.~Reviewed interim history and current functioning. Reviewed vital signs,~Labs/ Radiology~and current medications noted below. Continue current treatment with the changes noted in the dictated addendum note Assessment: Vital Signs: Vital Signs Date Time Temp Pulse Resp B/P (MAP) Pulse Ox O2 Delivery O2 Flow Rate FiO2 12/03/17 16:51 74 144/87 12/03/17 15:49 97.8 16 97 Room Air I&O Intake and Output 12/03/17 07:00 Intake Total 620 ml Balance 620 ml Intake Oral 620 ml Labs: Laboratory Tests Test 12/03/17 16:00 Urine Collection Type Unknown Urine Color Yellow Urine Clarity Clear Urine pH 6.5 Urine Specific [place] 1.020 Urine Protein 30 mg/dl (NEG-TRACE) Urine Glucose (UA) Neg mg/dL (NEG) Urine Ketones (Stick) Trace mg/dL (NEG) Urine Blood Neg (NEG) Urine Nitrite Neg (NEG) Urine Bilirubin Neg (NEG) Urine Urobilinogen Dipstick 0.2 mg/dL (0.2 mg/dL) Urine Leukocyte Esterase Neg (NEG) Urine RBC 0 /HPF (0-2) Urine WBC 1-4 /HPF (0-4) Urine Squamous Epithelial Cells Few /LPF Urine Bacteria Few /HPF (0-FEW) Urine Hyaline Casts Occ /HPF Urine Mucus Slight /LPF Current Medications: Meds: Current Medications Acetaminophen (Tylenol) 650 mg PRN Q6HRS PRN PO PAIN / TEMP Last administered on 12/02/17at 11:55; Start 11/20/17 at 01:45 Multi-Ingredient Ointment (Analgesic [place]) 1 jay PRN QID PRN TP MUSCLE PAIN; Start 11/20/17 at 01:45 Al Hydroxide/Mg Hydroxide (Mylanta Plus Xs) 15 ml PRN AFTMEALHC PRN PO DYSPEPSIA; Start 11/20/17 at 01:45 Magnesium Hydroxide (Milk Of Magnesia) 2,400 mg PRN QHS PRN PO CONSTIPATION; Start 11/20/17 at 01:45 Olanzapine (ZyPREXA ZYDIS) 1.25 mg PRN Q2HR PRN PO PSYCHOSIS Last administered on 11/20/17at 10:58; Start 11/20/17 at 02:15 Quetiapine Fumarate (SEROquel) 25 mg QHS PO ; Start 11/20/17 at 02:30; Stop at 02:32; Status DC Quetiapine Fumarate (SEROquel) 25 mg QHS PO Last administered on 11/21/17at 20: 47; Start 11/21/17 at 21:00; Stop 11/22/17 at 18:47; Status DC Vitamin D (Vitamin D3) 2,000 unit DAILY PO Last administered on 12/03/17 09:05 ; Start 11/20/17 at 09:00 Atorvastatin Calcium (Lipitor) 40 mg QHS PO Last administered on 12/03/17 19: 42; Start 11/20/17 at 21:00 Non-Formulary Medication (Carbidopa/ Levodopa (Rytary ER 48.75 mg-195 mg Cap)) 1 cap DAILYWLUN PO Last administered on 12/03/17 13:16; Start 11/20/17 at 12: 00 Non-Formulary Medication (Carbidopa/ Levodopa (Rytary ER 61.25 mg-245 mg Cap)) 1 cap TID@0900,1700,2100 PO Last administered on 12/03/17 19:46; Start at 09:00 Midodrine (Proamatine) 5 mg TIDWMEALS PO Last administered on 12/03/17 16:51; Start 11/20/17 at 12:00 Multivitamins/ Calcium (Thera-M Plus) 1 tab DAILY PO Last administered on at 09:05; Start 11/20/17 at 09:00 Paroxetine HCl (Paxil) 40 mg DAILY PO Last administered on 12/03/17at 09:05; Start 11/20/17 at 09:00 Magnesium Chloride (Mag Delay) 64 mg DAILY PO Last administered on 12/03/17 09 :06; Start 11/20/17 at 17:00 Cephalexin HCl (Keflex) 500 mg BID PO Last administered on 11/21/17at 07:48; Start 11/20/17 at 15:00; Stop 11/21/17 at 16:50; Status DC Lactobacillus Rhamnosus (Culturelle) 1 cap BID PO Last administered on at 19:42; Start 11/21/17 at 09:00 Cefpodoxime Proxetil (Vantin) 100 mg BID PO Last administered on 12/01/17at 07: 17; Start 11/21/17 at 21:00; Stop 12/01/17 at 20:59; Status DC Quetiapine Fumarate (SEROquel) 37.5 mg QHS PO Last administered on 12/03/17at 19 :43; Start 11/22/17 at 21:00 Buspirone HCl (Buspar) 5 mg DAILY PO Last administered on 12/03/17at 09:05; Start 11/28/17 at 09:00 Active Scripts Active Reported Buspirone Hcl 10 Mg Tablet 5 Mg PO DAILY Zyprexa Zydis (Olanzapine) 5 Mg Tab.rapdis 1.25 Mg PO PRN Q2HR PRN Analgesic [place] (Methyl Salicylate/Menthol) 28 Gm Oint...g. 1 Applic TP PRN QID PRN Milk Of Magnesia (Magnesium Hydroxide) 2,400 Mg/10 Ml Oral.susp 2,400 Mg PO PRN QHS PRN Mag64 (Magnesium Chloride) 64 Mg Tablet.er 64 Mg PO DAILY Mag-Al Plus Xs Suspension (Mag Hydrox/Al Hydrox/Simeth) 30 Ml Oral.susp 15 Ml PO PRN AFTMEALHC PRN Culturelle (Lactobacillus Rhamnosus Gg) 1 Each Cap.sprink 1 Each PO BID Tylenol (Acetaminophen) 325 Mg Tablet 650 Mg PO PRN Q6HRS PRN Atorvastatin Calcium 40 Mg Tablet 40 Mg PO QHS Paxil (Paroxetine Hcl) 40 Mg Tablet 40 Mg PO DAILY Vitamin D3 (Cholecalciferol (Vitamin D3)) 1,000 Unit Tablet 2,000 Unit PO DAILY Rytary ER 48.75 mg-195 mg Cap (Carbidopa/Levodopa) 1 Each Capsule.er 1 Cap PO DAILYWLUN Seroquel (Quetiapine Fumarate) 25 Mg Tablet 25 Mg PO HS Multivitamins (Multivitamin) 1 Each Tablet 1 Tab PO DAILY Midodrine Hcl 5 Mg Tablet 5 Mg PO TIDWMEALS Rytary ER 61.25 mg-245 mg Cap (Carbidopa/Levodopa) 1 Each Capsule.er 1 Cap PO TID AT09/ I have reviewed the current psychotropics carefully including drug interactions. Risk benefit ratio favors no change other than as noted in my dictated progress note. 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
[2017-12-03] MEDS: ACETAMINOPHEN 325 MG TABLET PO PRN (21:11)
[2017-12-04 05:48] VITALS: BP 175/95
[2017-12-04] MEDS: MULTIVITAMIN with MINERAL TABLET. PO SCH (08:55)
[2017-12-04] MEDS: CHOLECALCIFEROL (VITAMIN D3) 1,000 UNIT TABLET PO SCH (08:55)
[2017-12-04] MEDS: busPIRone 5 MG TABLET. PO SCH (08:55)
[2017-12-04] MEDS: MAGNESIUM CHLORIDE ER 64 MG TABLET.ER PO SCH (08:55)
[2017-12-04] MEDS: PARoxetine 20 MG TABLET PO SCH (08:55)
[2017-12-04] MEDS: LACTOBACILLUS RHAMNOSUS GG 1 CAPSULE. PO SCH (08:55)
[2017-12-04] MEDS: MIDODRINE 5 MG TABLET PO SCH ×2 (08:55→12:23)
[2017-12-04] MEDS: RYTARY PO SCH ×2 (08:57→12:23)
[2017-12-04] MEDS: ACETAMINOPHEN 325 MG TABLET PO PRN (09:09)
[2017-12-04 12:23] VITALS: BP 175/95
--- NOTE | 2017-12-04 20:39 | PDOC ---
Exam Note: Chiki Note: Please also refer to the separate dictated note~for this date of service dictated separately.~Patient seen individually. Discussed the patient with Nursing staff reviewed the chart.~Reviewed interim history and current functioning. Reviewed vital signs,~Labs/ Radiology~and current medications noted below. Continue current treatment with the changes noted in the dictated addendum note Assessment: Vital Signs: Vital Signs Date Time Temp Pulse Resp B/P (MAP) Pulse Ox O2 Delivery O2 Flow Rate FiO2 12/04/17 12:23 65 175/95 12/04/17 05:48 97.6 20 95 12/03/17 15:49 Room Air I&O Intake and Output 12/04/17 07:00 Intake Total 1080 ml Balance 1080 ml Intake Oral 1080 ml # Bowel Movements 1 Current Medications: Meds: Current Medications Acetaminophen (Tylenol) 650 mg PRN Q6HRS PRN PO PAIN / TEMP Last administered on 12/04/17at 09:09; Start 11/20/17 at 01:45; Stop 12/04/17 at 14:42; Status DC Multi-Ingredient Ointment (Analgesic [place]) 1 jay PRN QID PRN TP MUSCLE PAIN; Start 11/20/17 at 01:45; Stop 12/04/17 at 14:42; Status DC Al Hydroxide/Mg Hydroxide (Mylanta Plus Xs) 15 ml PRN AFTMEALHC PRN PO DYSPEPSIA; Start 11/20/17 at 01:45; Stop 12/04/17 at 14:42; Status DC Magnesium Hydroxide (Milk Of Magnesia) 2,400 mg PRN QHS PRN PO CONSTIPATION; Start 11/20/17 at 01:45; Stop 12/04/17 at 14:42; Status DC Olanzapine (ZyPREXA ZYDIS) 1.25 mg PRN Q2HR PRN PO PSYCHOSIS Last administered on 11/20/17at 10:58; Start 11/20/17 at 02:15; Stop 12/04/17 at 14:42; Status DC Quetiapine Fumarate (SEROquel) 25 mg QHS PO ; Start 11/20/17 at 02:30; Stop at 02:32; Status DC Quetiapine Fumarate (SEROquel) 25 mg QHS PO Last administered on 11/21/17at 20: 47; Start 11/21/17 at 21:00; Stop 11/22/17 at 18:47; Status DC Vitamin D (Vitamin D3) 2,000 unit DAILY PO Last administered on 12/04/17at 08:55 ; Start 11/20/17 at 09:00; Stop 12/04/17 at 14:42; Status DC Atorvastatin Calcium (Lipitor) 40 mg QHS PO Last administered on 12/03/17at 19: 42; Start 11/20/17 at 21:00; Stop 12/04/17 at 14:42; Status DC Non-Formulary Medication (Carbidopa/ Levodopa (Rytary ER 48.75 mg-195 mg Cap)) 1 cap DAILYWLUN PO Last administered on 12/04/17at 12:23; Start 11/20/17 at 12: 00; Stop 12/04/17 at 14:42; Status DC Non-Formulary Medication (Carbidopa/ Levodopa (Rytary ER 61.25 mg-245 mg Cap)) 1 cap TID@0900,1700,2100 PO Last administered on 12/04/17at 08:57; Start at 09:00; Stop 12/04/17 at 14:42; Status DC Midodrine (Proamatine) 5 mg TIDWMEALS PO Last administered on 12/04/17at 12:23; Start 11/20/17 at 12:00; Stop 12/04/17 at 14:42; Status DC Multivitamins/ Calcium (Thera-M Plus) 1 tab DAILY PO Last administered on at 08:55; Start 11/20/17 at 09:00; Stop 12/04/17 at 14:42; Status DC Paroxetine HCl (Paxil) 40 mg DAILY PO Last administered on 12/04/17at 08:55; Start 11/20/17 at 09:00; Stop 12/04/17 at 14:42; Status DC Magnesium Chloride (Mag Delay) 64 mg DAILY PO Last administered on 12/04/17at 08 :55; Start 11/20/17 at 17:00; Stop 12/04/17 at 14:42; Status DC Cephalexin HCl (Keflex) 500 mg BID PO Last administered on 11/21/17at 07:48; Start 11/20/17 at 15:00; Stop 11/21/17 at 16:50; Status DC Lactobacillus Rhamnosus (Culturelle) 1 cap BID PO Last administered on at 08:55; Start 11/21/17 at 09:00; Stop 12/04/17 at 14:42; Status DC Cefpodoxime Proxetil (Vantin) 100 mg BID PO Last administered on 12/01/17at 07: 17; Start 11/21/17 at 21:00; Stop 12/01/17 at 20:59; Status DC Quetiapine Fumarate (SEROquel) 37.5 mg QHS PO Last administered on 12/03/17at 19 :43; Start 11/22/17 at 21:00; Stop 12/04/17 at 14:42; Status DC Buspirone HCl (Buspar) 5 mg DAILY PO Last administered on 12/04/17at 08:55; Start 11/28/17 at 09:00; Stop 12/04/17 at 14:42; Status DC Active Scripts Active Reported Buspirone Hcl 10 Mg Tablet 5 Mg PO DAILY Zyprexa Zydis (Olanzapine) 5 Mg Tab.rapdis 1.25 Mg PO PRN Q2HR PRN Analgesic [place] (Methyl Salicylate/Menthol) 28 Gm Oint...g. 1 Applic TP PRN QID PRN Milk Of Magnesia (Magnesium Hydroxide) 2,400 Mg/10 Ml Oral.susp 2,400 Mg PO PRN QHS PRN Mag64 (Magnesium Chloride) 64 Mg Tablet.er 64 Mg PO DAILY Mag-Al Plus Xs Suspension (Mag Hydrox/Al Hydrox/Simeth) 30 Ml Oral.susp 15 Ml PO PRN AFTMEALHC PRN Culturelle (Lactobacillus Rhamnosus Gg) 1 Each Cap.sprink 1 Each PO BID Tylenol (Acetaminophen) 325 Mg Tablet 650 Mg PO PRN Q6HRS PRN Atorvastatin Calcium 40 Mg Tablet 40 Mg PO QHS Paxil (Paroxetine Hcl) 40 Mg Tablet 40 Mg PO DAILY Vitamin D3 (Cholecalciferol (Vitamin D3)) 1,000 Unit Tablet 2,000 Unit PO DAILY Rytary ER 48.75 mg-195 mg Cap (Carbidopa/Levodopa) 1 Each Capsule.er 1 Cap PO DAILYWLUN Seroquel (Quetiapine Fumarate) 25 Mg Tablet 37.5 Mg PO HS Multivitamins (Multivitamin) 1 Each Tablet 1 Tab PO DAILY Midodrine Hcl 5 Mg Tablet 5 Mg PO TIDWMEALS Rytary ER 61.25 mg-245 mg Cap (Carbidopa/Levodopa) 1 Each Capsule.er 1 Cap PO TID AT11/23/2099 I have reviewed the current psychotropics carefully including drug interactions. Risk benefit ratio favors no change other than as noted in my dictated progress note. 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
--- NOTE | 2017-12-04 21:20 | PN ---
DATE: 12/02/2017 This is a late entry for 12/02/2017 covers elements not covered in my initial note. SUBJECTIVE: I met with the patient in the evening. The patient slept 6-3/4 hours previous night. She has been less hostile per nursing report, more pleasant, compliant with her medications, ambulates with a walker. REVIEW OF SYSTEMS: No CV, , pulmonary, eye, ENT system symptoms on review. MENTAL STATUS EXAM: Oriented to herself and situation. Speech has some latency, low in volume, coherent consistent with Parkinson's. Abstraction fair, computation impaired, language function intact, attention span short. Mood and affect somewhat withdrawn. LABORATORY DATA: Reviewed. IMPRESSION: Unchanged from initial note. PLAN: No change from initial note. MAN Alex KAUR MD DR: MADISYN/danya JOB#: [id number] / [id number]
--- NOTE | 2017-12-04 23:44 | PN ---
DATE: 12/03/2017 This is a late entry for 12/03/2017 covers elements not covered in my initial note. SUBJECTIVE: I met with the patient in the evening, staffed at a treatment team meeting with the entire team in the morning. The patient's son, Klever was to attend, but was not available for the treatment team meeting. The patient slept 5-3/4 hours previous evening. Overall, doing better, less anxious. REVIEW OF SYSTEMS: Ambulation impaired, in wheelchair. No CV, , pulmonary, eye, ENT system symptoms on review. MENTAL STATUS EXAM: Reasonably oriented. Speech moderate latency, low in rate and rhythm, low in volume, consistent with her diagnosis. Abstraction fair, computation impaired, language function intact, attention span short. Mood and affect improved. No aggression noted. LABORATORY DATA: Reviewed. IMPRESSION: Unchanged from initial note. PLAN: No change from initial note. Transition to the [facility] on 12/04/2017. MARIE KAUR MD DR: MADISYN/danya JOB#: [id number] / [id number]
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
== END 2017-12-04 13:30 | DRG 885 ==
LOC: GEROPSY 11-20 01:01
PROVIDERS: ADMIT Psychiatry & Neurology Psychiatry; ATTEND Psychiatry & Neurology Psychiatry
DX: F33.3 Major depressive disorder, recurrent, severe with psychotic symptoms (principal); F02.81 Dementia in other diseases classified elsewhere, unspecified severity, with behavioral disturbance; F01.51 Vascular dementia, unspecified severity, with behavioral disturbance; F05 Delirium due to known physiological condition; N39.0 Urinary tract infection, site not specified; G20 Parkinson's disease; E78.5 Hyperlipidemia, unspecified; W18.39XA Other fall on same level, initial encounter; Y92.238 Other place in hospital as the place of occurrence of the external cause; E83.42 Hypomagnesemia; F33.41 Major depressive disorder, recurrent, in partial remission; F41.9 Anxiety disorder, unspecified; F63.9 Impulse disorder, unspecified; I10 Essential (primary) hypertension; Y93.89 Activity, other specified; Y99.8 Other external cause status; Z66 Do not resuscitate; Z79.899 Other long term (current) drug therapy
CPT/HCPCS: 36415; 80053; 80061; 81001; 82306; 82607; 83036; 83540; 83550; 83735; 84436; 84443; 84480; 85025; 86592; 87086; 87186; 93005; 97110; 97116; 97530; 97535